=== PATIENT | female | born 1945 | race Caucasian/White ===

== ENCOUNTER 2020-01-08 09:20 | Outpatient (CLI) | payer MEDICARE, SELFPAY ==
--- NOTE | ~2020-01-08 | MM_ITS ---
EXAMINATION: MM screening [facility] BI w shoaib HISTORY: Screening mammogram TECHNIQUE: Craniocaudal and mediolateral oblique 3-D tomosynthesis images were obtained and synthetic 2-D images were generated. CAD analysis was submitted and interpreted. COMPARISON: 12/18/2018, 12/15/2017, 11/28/2016 BREAST PARENCHYMAL COMPOSITION: There are scattered areas of fibroglandular density. FINDINGS: There is no evidence of suspicious mass, calcification, or architectural distortion to sugg est malignancy in either breast. There has been no suspicious interval change. IMPRESSION: 1. No mammographic evidence of malignancy. 2. Recommend routine screening mammography in one year. BI-RADS Category 1: Negative Reviewed, dictated and finalized at location A.
== END 2020-01-08 09:21 | disposition home or self-care (01) ==
LOC: ANHIMG 09:27
PROVIDERS: PCP Family Medicine; Visit Provider Obstetrics & Gynecology
DX: Z12.31 Encounter for screening mammogram for malignant neoplasm of breast (principal)
CPT/HCPCS: 77063; 77067

== ENCOUNTER 2021-02-02 15:35 | Outpatient (CLI) | payer MEDICARE, SELFPAY ==
--- NOTE | ~2021-02-02 | MM_ITS ---
EXAMINATION: MM screening [facility] BI w shoaib HISTORY: Screening mammogram TECHNIQUE: Craniocaudal and mediolateral oblique 3-D tomosynthesis images were obtained and synthetic 2-D images were generated. CAD analysis was submitted and interpreted. COMPARISON: 01/08/2020, 12/18/2018, 12/15/2017 BREAST PARENCHYMAL COMPOSITION: There are scattered areas of fibroglandular density. FINDINGS: There is no evidence of suspicious mass, calcification, or architectural distortion to sugg est malignancy in either breast. There has been no suspicious interval change. IMPRESSION: 1. No mammographic evidence of malignancy. 2. Recommend routine screening mammography in one year. BI-RADS Category 1: Negative Reviewed, dictated and finalized at location A.
== END 2021-02-02 15:36 | disposition home or self-care (01) ==
LOC: ANHIMG 15:41
PROVIDERS: PCP Family Medicine; Visit Provider Obstetrics & Gynecology
DX: Z12.31 Encounter for screening mammogram for malignant neoplasm of breast (principal)
CPT/HCPCS: 77063; 77067

== ENCOUNTER 2021-04-30 13:22 | Outpatient (CLI) | payer MEDICARE, SELFPAY ==
--- NOTE | ~2021-04-30 | DEXA_ITS ---
Bone Density Report Name: Yulisa Braga Age: 75 Sex: Female Ethnicity: White Date of : 1945 Indication: postmenopausal; height loss; Referring Provider: DAKSHA SPARKS Study: Bone densitometry was performed. Exam Date: April 30, 2021 Accession number: [id number] Bone Density: Region BMD T-score Z-score Classification AP Spine (L1-L4) 0.841 -1.9 0.7 Osteopenia Femoral Neck (Left) 0.581 -2.4 -0.2 Osteopenia Total Hip (Left) 0.741 -1.7 0.3 Osteopenia Total Hip Bilateral Avg 0.712 -1.9 0.1 Osteopenia Femoral Neck (Right) 0.567 -2.5 -0.4 Osteoporosis Total Hip (Right) 0.682 -2.1 -0.2 Osteopenia World Health Organization criteria for BMD impression classify patients as: Normal (T-score at or above -1.0), Osteopenia (T-score between -1.0 and -2.5), or Osteoporosis (T-score at or below -2.5). 10-year Fracture Risk: FRAX not reported because: Some T-score for Spine Total or Hip Total or Femoral Neck at or below -2.5 Treated for osteoporosis Clinical Information Provided by Patient: Is being treated for osteoporosis Has used the following medications: Boniva (i.e. ibandronate) Patient maximum height was 67 Menopause Age: 48 No regular weight bearing exercise Onset of menses at age 11 Number of children 1 Impression: The patient has osteoporosis, based on the Right Femoral Neck T-score. Discussion: It is important to ask patients whether they are taking their medications and to encourage continued and appropriate compliance with their osteoporosis therapies to reduce fracture risk. It is also important to review their risk factors and encourage appropriate calcium and vitamin D intakes, exercise, fall prevention and other lifestyle measures. Follow-Up: Consider a repeat BMD and Vertebral Fracture Assessment (VFA) exam in 2 years or sooner if medically necessary, to reassess this patient's status. Reported by: HERI on 04/30/2021 1:56:00 PM. Reviewed, dictated and finalized at location ANito [facility]
== END 2021-04-30 13:23 | disposition home or self-care (01) ==
LOC: ANHIMG 13:24
PROVIDERS: PCP Family Medicine; Visit Provider Obstetrics & Gynecology
DX: M81.0 Age-related osteoporosis without current pathological fracture (principal); M85.88 Other specified disorders of bone density and structure, other site; M85.851 Other specified disorders of bone density and structure, right thigh; M85.852 Other specified disorders of bone density and structure, left thigh
CPT/HCPCS: 77080

== ENCOUNTER 2022-02-17 09:31 | Outpatient (CLI) | payer MEDICARE, SELFPAY ==
--- NOTE | ~2022-02-17 | MM_ITS ---
EXAMINATION: MM screening [facility] BI w shoaib HISTORY: Screening mammogram TECHNIQUE: Craniocaudal and mediolateral oblique 3-D tomosynthesis images were obtained and synthetic 2-D images were generated. CAD analysis was submitted and interpreted. COMPARISON: 02/02/2021, 01/08/2020, 12/18/2018 bilateral screening mammogram examinations BREAST PARENCHYMAL COMPOSITION: The breasts are heterogeneously dense, which may obscure small masses . FINDINGS: There is no evidence of suspicious mass, calcification, or architectural distortion to sugg est malignancy in either breast. There has been no suspicious interval change. IMPRESSION: 1. No mammographic evidence of malignancy. 2. Recommend routine screening mammography in one year. BI-RADS Category 1: Negative Reviewed, dictated and finalized at location A.
== END 2022-02-17 09:32 | disposition home or self-care (01) ==
PROVIDERS: PCP Family Medicine; Visit Provider Obstetrics & Gynecology
DX: Z12.31 Encounter for screening mammogram for malignant neoplasm of breast (principal)
CPT/HCPCS: 77063; 77067

== ENCOUNTER 2022-03-06 09:26 | Emergency (ER) | payer MEDICARE, SELFPAY ==
--- NOTE | ~2022-03-06 | CT_ITS ---
EXAMINATION: CT pelvis wo con DATE: 03/06/2022 11:35 INDICATION: Tender to palpation. Bony deformity. TECHNIQUE: Computed tomography (CT) of the pelvis was performed without intravenous contrast. The dos e-length product was 120.93 mGy-cm. Automated exposure control and iterative reconstruction technique were employed. 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 No acute fracture or traumatic malalig nment. Pelvic rings are intact. Moderate colonic fecal loading. Nonobstructive bowel pattern. No free air or free fluid. IMPRESSION: 1. No acute abnormality of the pelvis. Reviewed, dictated and finalized at location A.
[2022-03-06 09:31] VITALS: BP 124/66; PULSE 93; RESP 16; TEMP 36.4; O2SAT 96
--- NOTE | 2022-03-06 09:54 | ED.GENADULT ---
HPI - General Adult General Chief complaint: Weakness Stated complaint: Shingles Pain x1 Month Time Seen by Provider: 03/06/22 09:41 History of Present Illness HPI narrative: Patient is a 76-year-old female with a history of recent shingles flareup here for evaluation of difficulty sleeping over the past month. Patient states that at nighttime she will toss and turn and has trouble falling and staying asleep, leading her to only get about an hour of sleep per night. She states this is made her to feel tired during the day. Patient is quite physically active, and she has still been able to complete her daily activities without feeling short of breath or developing chest pain. Patient attributes her difficulty sleeping due to recent shingles infection that was treated with Valtrex and gabapentin. Additionally attributes this to lumps and bumps in her back. These lesions developed without trauma but have been painful, somewhat alleviated with aleve. Denies incontinence or retention of bowel or bladder, saddle anesthesia, paresthesias down her legs. Patient denies weakness, states she just feels tired. Denies urinary symptoms, fevers, abdominal pain, nausea, vomiting, shortness of breath, cough, upper respiratory symptoms. Related Data Allergies Allergy/AdvReac Type Severity Reaction Status Date / Time No Known Allergies Allergy Verified 03/06/22 09:42 Review of Systems Review of Systems: Gen: Reports feeling tired and difficulty sleeping. Denies fevers or chills Eyes: Denies eye pain or visual change ENT: Denies congestion Respiratory: Denies shortness of breath or cough CV: Denies chest pain or palpitations GI: Denies abdominal pain nausea, emesis or diarrhea denies burning, urgency, frequency or hematuria Musculoskeletal: Reports pain over her sacrum. Denies muscle pain Neuro: Denies numbness, tingling, weakness or focal weakness Skin: Denies rash Except as documented, all other systems reviewed and negative [facility] Past Medical History Medical History Age-related osteoporosis without current pathological fracture Surgical History Surgical History Bilateral retinal detachment History of cholecystectomy Family History Family History Mother Carcinoma of colon Family history of coronary artery disease Sibling Carcinoma of colon Father Carcinoma of colon Social History Social History Smoking status: Never smoker Second hand tobacco smoke exposure: No Alcohol intake: current Alcohol use details: rare Substance use: never Substance use type: does not use Gender identity (if verbalized by the patient): Female Exam Narrative: APPEARANCE: Well appearing, no pain in distress, well-nourished. Head normocephalic and atraumatic. EYES: PERRLA/EOMI, conjunctivae clear NOSE: No nasal drainage EARS: External ear normal in appearance THROAT: Oropharynx is clear. Mucous membranes are moist. NECK: Supple. No adenopathy, no masses. RESPIRATORY: Airway patent, respirations nonlabored. Clear to auscultation bilaterally, no rales, rhonchi, wheezing. CARDIOVASCULAR: Regular rate and rhythm without murmurs, rubs, or gallops. ABDOMINAL: Normoactive bowel sounds. Soft, nontender, nondistended. No rebound tenderness or guarding. MUSCULOSKELETAL: Patient is tender to palpation along the left superior iliac crest and left sacral area, bony deformity palpated along sacrum. Extremities are warm and well-perfused. Moves all extremities well. No edema. NEURO: Normal speech. No focal neurologic deficits. SKIN: Patient has a macular rash on the left lower abdomen extending over the left flank PSYCHIATRIC: Normal affect/mood. Course Vital Signs Vital signs: Vital Signs Temperature 97.5 F L
[2022-03-06 10:13] LABS: Basophils Absolute Auto 0.1 K/mm3 (0.0-0.1); Basophils Percent Auto 0.9 % (0.2-1.2); Eosinophils Absolute Auto 0.1 K/mm3 (0-0.3); Eosinophils Percent Auto 2.2 % (0-4.4); Hematocrit 38.5 % (37.0-47.0); Hemoglobin 12.9 g/dL (12.0-15.0); Immature Granulocyte Absolute 0.02 K/mm3 (0.00-0.031); Immature Granulocyte Percent A 0.3 % (0-0.5); Lymphocytes Absolute Auto 2.14 K/mm3 (0.9-3.2); Lymphocytes Percent Auto 33.4 % (18.3-44.2); Mean Corpuscular HGB Conc 33.5 g/dl (32-36); Mean Corpuscular Hemoglobin 33.2 pg (26-34); Mean Corpuscular Volume 99.2 fl (80-100); Monocytes Absolute Auto 0.5 K/mm3 (0.1-0.6); Monocytes Percent Auto 8.3 % (2.6-8.5); Neutrophils Absolute Auto 3.5 K/mm3 (1.3-6.7); Neutrophils Percent Auto 54.9 % (45.5-73.1); Platelet Count Result 254 k/mm3 (150-375); Red Blood Count 3.88 M/mm3 (4.2-5.4); Red Cell Distribution Width 13.7 % (11.5-14.5); White Blood Count 6.4 K/mm3 (4.5-10.0)
[2022-03-06 10:23] LABS: Alanine Aminotransferase 22 U/L (6-35); Alkaline Phosphatase 68 U/L (38-126); Anion Gap 4 mmol/L (8-16); Aspartate Amino Transferase 24 U/L (14-36); Bilirubin,Total 0.4 mg/dL (0.2-1.3); Blood Urea Nitrogen 22 mg/dL (7-17); Calcium 8.7 mg/dL (8.4-10.2); Carbon Dioxide 27 mmol/L (22-30); Chloride 104 mmol/L (98-107); Estimated CRCL calculation 36 ml/min; Estimated Glomerular Filt Rate > 60; Glucose 101 mg/dL (65-110); Potassium 4.1 mmol/L (3.4-5.0); Sodium 135 mmol/L (137-145)
[2022-03-06 10:25] LABS: Appearance Urine Clear (Clear); Bilirubin Urine 1+ (Negative); Blood Urine Negative (Negative); Color Urine Yellow (Yellow); Glucose Urine UA Negative (Negative); Ketones Urine 1+ mg/dL (Negative); Leukocyte Esterase Ur Negative LEU/UL (Negative); Nitrate Urine Negative (Negative); Protein Urine Trace mg/dL (Negative); Urobilinogen Urine 0.2 mg/dL (<2.0)
[2022-03-06 10:41] LABS: Add Urine Microscopic? YES; Mucus Urine Rare /lpf; RBC Urine 0-2 /hpf (0-2); Squamous Epithelial Cell Urine Rare /hpf (Few); WBC Urine 0-3 /hpf
[2022-03-06 12:20] VITALS: BP 127/78; PULSE 88; RESP 17; O2SAT 99
== END 2022-03-06 12:22 | disposition home or self-care (01) ==
PROVIDERS: Physician Assistant; Emergency Provider General Practice; PCP Family Medicine
DX: M54.50 Low back pain, unspecified (principal); M81.0 Age-related osteoporosis without current pathological fracture
CPT/HCPCS: 36415; 72192; 80053; 81001; 85025; 99284

== ENCOUNTER 2023-01-30 00:40 | Day surgery (SDC) | payer MEDICARE, SELFPAY ==
--- NOTE | 2023-01-18 11:19 | PC.NURSE ---
called pt to complete her pat call for colonoscopy scheduled for january 30. pt could not remember if she had the instructions for her prep, states she did have a one sheet paper describing the prep. went over her instructions and her medical history. pt voiced understanding. mailed complete copy of instructions, offered email but pt states she only checks it once a week. pt a/o x 3 but vague historian.
[2023-01-30 08:48] VITALS: BP 83/53; PULSE 92; RESP 18; TEMP 36.1; O2SAT 98; BMI 14.6
[2023-01-30] MEDS: LACTATED RINGERS 1,000 ML 150 ML IV CONT (08:59)
--- NOTE | 2023-01-30 09:04 | PM.HPGS ---
History of Present Illness History of Present Illness Consent: Risks, benefits, and alternatives have been discussed and questions answered. Patient agrees to proceed with procedure. Chief complaint: family hx colon ca Narrative: Yulisa Braga is a 77 year old female Patient presents for screening colonoscopy. Patient family history is significant grandfather, father, brother, and sister have had colon cancer. Other siblings have had polyps. Patient reports her own weight appetite bowel movements are normal. Previous colonoscopy 2016 was unremarkable. Patient presents today for neoplasia screening. Review of Systems Review of Systems: Review of systems noncontributory. [facility] Past Medical History Medical History Age-related osteoporosis without current pathological fracture Surgical History Surgical History Bilateral retinal detachment History of cholecystectomy Family History Family History Mother Carcinoma of colon Family history of coronary artery disease Sibling Carcinoma of colon Father Carcinoma of colon Social History Social History Smoking status: Former smoker Tobacco type: cigarettes Second hand tobacco smoke exposure: No Alcohol intake: current Alcohol use details: rare Substance use: never Substance use type: does not use Living arrangements: alone Occupation/Education: retired Gender identity (if verbalized by the patient): Female Meds Home Medications and Allergies Home Medications Medication Instructions Recorded Confirmed Type cetirizine 5 mg-pseudoephedrine ER 1 tablet PO Q12H #72 tabs 09/29/21 01/18/23 Rx 120 mg tablet,extended release,12hr (Zyrtec-D) ibandronate 150 mg tablet 150 mg PO 01/18/23 History Allergies Allergy/AdvReac Type Severity Reaction Status Date / Time No Known Allergies Allergy Verified 01/30/23 08:47 Vital Signs Vital Signs - 24 hr 01/30/23 08:48 Temperature 97.0 F L Pulse Rate 92 Respiratory Rate 18 Blood Pressure 83/53 L Pulse Oximetry 98 Oxygen Delivery Room Air Exam Narrative: Physical exam reveals patient to be alert. Vital signs stable. HEENT exam is unremarkable. Patient is anicteric. Lungs are clear to auscultation and percussion. Heart is without murmur or extra sounds. Abdomen bowel sounds are present soft nontender with no organomegaly. Digital external rectal exam is normal. Assessment and Plan Assessment and plan (1) Family history of colon cancer: Code(s): Z80.0 - Family history of malignant neoplasm of digestive organs Status: Acute Assessment and Plan: Patient has a very strong family history of colon cancer. Neoplasia screening advised at this time. Further recommendations will be given after endoscopy.
--- NOTE | 2023-01-30 09:16 | P.PNAN_ITS ---
Anes - Initial Pre Proc Eval Procedure: Operation Date: 01/30/23 10:15 Proposed Procedures p Screening Colonoscopy - Erickson Ocampo MD Date/Time: 01/30/23 09:16 Surgeon: Erickson Ocampo MD Pre Op Diagnosis: family hx colon ca Patient Data Age: 77 Gender: F Height: 1.7 m Weight: 42.3 kg Last Vital Signs Temp 97.0 F L 01/30/23 08:48 Pulse 92 01/30/23 08:48 Resp 18 01/30/23 08:48 BP 83/53 L 01/30/23 08:48 Pulse Ox 98 01/30/23 08:48 O2 Del Method Room Air 01/30/23 08:48 Allergies Allergy/AdvReac Type Severity Reaction Status Date / Time No Known Allergies Allergy Verified 01/30/23 08:47 Home Medications Medication Instructions Recorded Confirmed Type cetirizine 5 mg-pseudoephedrine ER 1 tablet PO Q12H #72 tabs 09/29/21 01/18/23 Rx 120 mg tablet,extended release,12hr (Zyrtec-D) ibandronate 150 mg tablet 150 mg PO 01/18/23 History Patient hx anesthesia problems: none Family hx anesthesia problems: none Results Review: All pre-operative results and documents have been reviewed as part of the pre- operative evaluation. [facility] Past Medical History Medical History Age-related osteoporosis without current pathological fracture Surgical History Surgical History Bilateral retinal detachment History of cholecystectomy Family History Family History Mother Carcinoma of colon Family history of coronary artery disease Sibling Carcinoma of colon Father Carcinoma of colon Social History Social History Smoking status: Former smoker Tobacco type: cigarettes Second hand tobacco smoke exposure: No Alcohol intake: current Alcohol use details: rare Substance use: never Substance use type: does not use Living arrangements: alone Occupation/Education: retired Gender identity (if verbalized by the patient): Female Anes - Eval Final PreProcedure Day of Procedure 05/08/23 09:16 Patient weight: normal Heart: regular rate and rhythm Lungs: clear to auscultation Airway: Mallampati scale class II Neurological: alert and oriented Last oral intake: >/= 8 hours ASA classification: II Emergent: no Anesthetic plan: proceed Anesthesia type and monitoring: general GIVS and standard monitoring Results Review: All pre-operative results and documents have been reviewed as part of the pre- operative evaluation. Informed Consent: The patient's anesthetic plan and its attendant risks and benefits were discussed with the patient/family/POA. Questions were solicited and answers provided to the satisfaction of the patient/family/POA.
[2023-01-30 09:58] VITALS: BP 83/32; PULSE 71; RESP 30; O2SAT 100
[2023-01-30 10:08] VITALS: BP 84/43; PULSE 71; RESP 25; O2SAT 100
[2023-01-30 10:18] VITALS: BP 102/40; PULSE 69; RESP 16; O2SAT 98
== END 2023-01-30 10:22 | disposition home or self-care (01) ==
PROVIDERS: PCP Family Medicine; Visit Provider Internal Medicine Gastroenterology
PROC: 0DJD8ZZ Inspection of Lower Intestinal Tract, Via Natural or Artificial Opening Endoscopic (ICD-10-PCS; CPT 45378; principal; 2023-01-30 10:15)
DX: Z12.11 Encounter for screening for malignant neoplasm of colon (principal); K63.5 Polyp of colon; K64.8 Other hemorrhoids; Z80.0 Family history of malignant neoplasm of digestive organs; M81.0 Age-related osteoporosis without current pathological fracture; Z87.891 Personal history of nicotine dependence
CPT/HCPCS: 45380; 88305; J2704; J7120

== ENCOUNTER 2023-05-03 10:18 | Outpatient (CLI) | payer MEDICARE, SELFPAY ==
--- NOTE | ~2023-05-03 | DEXA_ITS ---
Bone Density Report Name: CLAUDIO ZAVALETA Age: 77 Sex: Female Ethnicity: White Date of : 1945 Indication: osteopenia; height loss;postmenopausal Referring Provider: DAKSHA SPARKS Study: Bone densitometry was performed. Exam Date: May 03, 2023 Accession number: [id number] Bone Density: Region BMD T-score Z-score Classification AP Spine(L1-L4) 0.866 -1.6 1.0 Osteopenia Femoral Neck (Left) 0.549 -2.7 -0.4 Osteoporosis Total Hip (Left) 0.671 -2.2 -0.2 Osteopenia Femoral Neck (Right) 0.608 -2.2 0.1 Osteopenia Total Hip (Right) 0.710 -1.9 0.1 Osteopenia Total Hip Mean 0.691 -2.1 -0.1 Osteopenia World Health Organization criteria for BMD impression classify patients as: Normal (T-score at or above -1.0), Osteopenia (T-score between -1.0 and -2.5), or Osteoporosis (T-score at or below -2.5). 10-year Fracture Risk: FRAX not reported because: Some T-score for Spine Total or Hip Total or Femoral Neck at or below -2.5 Previous Exams: Region Exam Age BMD T-score BMD Change BMD Change Date g/cm2 vs Baseline vs Previous Total Hip(Left) 05/03/2023 77 0.671 -2.2 -0.070 (-9.4%) -0.070 (-9.4%) 04/30/2021 75 0.741 -1.7 Total Hip(Right) 05/03/2023 77 0.710 -1.9 0.028 (4.2%)# 0.028 (4.2%)# 04/30/2021 75 0.682 -2.1 *Denotes significance at 95% confidence level, LSC for Total Hip = 0.027 g/cm2 # Denotes dissimilar scan types or analysis methods Clinical Information Provided by Patient: Has used the following medications: Vitamin D, Calcium Patient maximum height was 67 Menopause Age: 48 Drinks caffeinated beverages Onset of menses at age 10 Number of children 1 Impression: The patient has osteoporosis, based on the Left Femoral Neck T-score. No significant bone loss was observed. Discussion: INCREASED RISK OF FRACTURE. BONE DENSITY IS UNDESIRABLY LOW AT ONE OR MORE SKELETAL SITES, CONSISTENT WITH POSTMENOPAUSAL OSTEOPOROSIS. This patient's lowest T-score meets the World Health Organization's (WHO) criteria for osteoporosis at one or more sites (T-score -2.5 or below). In untreated patients, the risk of osteoporotic fracture increases approximately two-fold for each 1.0 SD decrease in T-score. Low bone density is not the only risk factor for fracture; also consider factors such as patient's age, frailty or poor health, risk of falling, risk of injury, previous osteoporotic fracture, family history of osteoporosis, cigarette smoking, low body weight, etc. Not every
== END 2023-05-03 10:19 | disposition home or self-care (01) ==
LOC: ANHIMG 10:21
PROVIDERS: PCP Family Medicine; Visit Provider Obstetrics & Gynecology
DX: M81.0 Age-related osteoporosis without current pathological fracture (principal); M85.88 Other specified disorders of bone density and structure, other site; M85.852 Other specified disorders of bone density and structure, left thigh; M85.851 Other specified disorders of bone density and structure, right thigh
CPT/HCPCS: 77080

== ENCOUNTER 2024-10-10 09:39 | Inpatient (IN) | payer MEDICARE, SELFPAY ==
[2024-10-10] VITALS (12 sets, daily range): BP systolic 93–135; BP diastolic 39–87; PULSE 75–89; RESP 12–18; TEMP 36.3–36.9; O2SAT 92–100
--- NOTE | ~2024-10-10 | CT_ITS ---
CT lumbar spine wo con Ordering provider: Jinny Park APRN History: 78 years Female with . back pain s/p fall . Comparison: None. Technique: CT lumbar spine without contrast. Automated exposure control and iterative reconstruction technique were employed. The dose-length product was 170.70 mGy-cm. FINDINGS: VERTEBRAE: Normal height and alignment. No subluxation or visible acute fracture. DISC SPACES: Well maintained. Facet joint disease in the lower lumbar area at multiple levels. T12-L1: No stenosis. L1-L2: No stenosis. L2-L3: No stenosis. L3-L4: No stenosis. Bilateral facet joint disease. Diffuse disc bulge with slight narrowing of the ri ght foramen. L4-L5: No stenosis. Bilateral facet joint disease. Diffuse disc bulge with slight narrowing of the r ight foramen. L5-S1: No stenosis. Bilateral facet joint disease. Diffuse disc bulge with bilateral narrowing of th e foramina. PARASPINOUS SOFT TISSUES: Mild atheromatous disease of the abdominal aorta. Left sacroiliitis. IMPRESSION: No acute osseous abnormality. Multilevel disc bulges with variable degrees of intervertebral foraminal narrowing. Reviewed, dictated and finalized at location A. KAYAKING GUIDE IMPRESSION: No acute osseous abnormality. Multilevel disc bulges with variable degrees of intervertebral foraminal narrow ing.
--- NOTE | ~2024-10-10 | XR_ITS ---
XR hip BI 2V w AP pelvis Ordering provider: Jinny Park APRN History: . + pelvis/hip pain s/p fall on ice YESTERDAY . Comparison: None. FINDINGS: BONES: Possibility of impacted fracture in the right surgical neck is not excluded. CT evaluation is advised. HIP JOINT SPACES: Severe right hip osteoarthritic changes. SACROILIAC JOINT SPACES/LUMBAR SPINE: The sacroiliac joint spaces are normal. Mild degenerative mckenzie es of the visualized lower lumbar spine. PUBIC SYMPHYSIS: Normal. SOFT TISSUES: Normal. IMPRESSION: Possibility of fracture in the right surgical neck cannot be excluded. CT evaluation is advised. Severe right hip osteoarthritic changes. Reviewed, dictated and finalized at location A. MENT CONTROL ASSISTANT IMPRESSION: Possibility of fracture in the right surgical neck cannot be excluded. CT evalu ation is advised. Severe right hip osteoarthritic changes.
--- NOTE | ~2024-10-10 | CT_ITS ---
EXAMINATION: CT hip RT wo con DATE: 10/10/2024 11:17 INDICATION: Suggestion of right femoral neck fracture on prior radiographs. TECHNIQUE: High resolution computed tomography (CT) of the right hip was performed without intravenou s contrast. Additional sagittal and coronal reconstructions were performed. Automated exposure contro l and iterative reconstruction technique were employed. The dose-length product was 108.96 mGy-cm. COMPARISON: Radiographs dated 10/10/2024 FINDINGS: There is a subcapital fracture of the proximal right femur with mild anterior and lateral impaction r esulting in mild valgus angulation. There is mild comminution along the anteromedial side of the frac ture. No evident fracture of the visualized right hemipelvis. Moderate to severe right hip osteoarthr itis with prominent subarticular cystlike change at the anterosuperior right acetabulum. Small right hip joint effusion. IMPRESSION: 1. Impacted and mildly comminuted subcapital fracture of the proximal right femur. 2. Moderate to severe right hip osteoarthritis. Reviewed, dictated and finalized at location B. FICIAL INSEMINATION TECHNICIAN IMPRESSION: 1. Impacted and mildly comminuted subcapital fracture of the proximal right fem ur. 2. Moderate to severe right hip osteoarthritis.
--- NOTE | ~2024-10-10 | XR_ITS ---
XR surgery orthopedic Indication: Right hip pinning with lag screws TECHNIQUE: Fluoroscopy used during Right hip pinning with lag screws performed by [Jose mcallister MD] on 10/10/2024. 1 minute 33 seconds of fluoroscopy with 2 fluoroscopic images captured. FINDINGS: Correlate with procedure note. IMPRESSION: Fluoroscopy used during Right hip pinning with 3 lag screws. Reviewed, dictated and finalized at location A. ICER
--- NOTE | ~2024-10-10 | XR_ITS ---
EXAMINATION: XR knee RT min 4V DATE: 10/10/2024 10:42 INDICATION: Right knee pain post fall TECHNIQUE: Anteroposterior, 2 oblique and crosstable lateral views of the right knee were obtained COMPARISON: None. FINDINGS: Alignment is normal. No fracture. Joint spaces appear normal on nonweightbearing imaging. No joint e ffusion/layering lipohemarthrosis. Soft tissues are unremarkable. IMPRESSION: 1. Negative right knee radiographs. Reviewed, dictated and finalized at location B. D AND PLASMA LABORATORY ASSISTANT
--- NOTE | 2024-10-10 10:28 | ED_ITS ---
HPI - Fall General Chief Complaint: Fall <Jinny Park APRN - Last Filed: 10/10/24 18:21> Stated Complaint: r groin pain <Jinny Park APRN - Last Filed: 10/10/24 18:21> History of Present Illness HPI Narrative: Patient is an 78-year-old female who presents to the ER after slipping on ice and falling on her back. She reports she was getting out of her car, stepped out with one foot, then slipped and fell backwards. Patient denies hitting her head or loss of consciousness. She reports the incision above yesterday but she decided to come in today because she does not have any pain medicine at home. Patient endorses significant groin pain and lower back pain. She reports she is unable to move right leg appropriately. Patient also reports she does not have pain medicine and states ?I am a and I have all this money so I figured I might as well come in to get checked out. She denies any medical history this size bone density loss and ?some sinus stuff. Patient reports she is out of her bone pill and follow her pain medication at home is . She denies chest pain, shortness of breath, headache, upper back pain, lower extremity pain. <Jinny Park APRN - Last Filed: 10/10/24 18:21> Related Data Allergies/Adverse Reactions: Allergies Allergy/AdvReac Type Severity Reaction Status Date / Time No Known Allergies Allergy Verified 10/10/24 09:43 <Jinny Park APRN - Last Filed: 10/10/24 18:21> Review of Systems 2 Review of Systems: All systems reviewed & are unremarkable except as noted in HPI and below <Jinny Park APRN - Last Filed: 10/10/24 18:21> [facility] Past Medical History Medical History: Medical History Anxiety Shingles History of retinal detachment Age-related osteoporosis without current pathological fracture Family history of colon cancer History of bladder cancer HLD (hyperlipidemia) <Jinny Park APRN - Last Filed: 10/10/24 18:21> Surgical History Surgical History: Surgical History History of appendectomy History of cholecystectomy Bilateral retinal detachment <Jinny Park APRN - Last Filed: 10/10/24 18:21> Family History Family History: Family History Mother Carcinoma of colon Family history of coronary artery disease Sibling Carcinoma of colon Father Carcinoma of colon <Jinny Park APRN - Last Filed: 10/10/24 18:21> Social History Social History: Social History Smoking status: Former smoker Second hand tobacco smoke exposure: No Alcohol intake: current Alcohol use details: rare Substance use: never Substance use type: does not use Do You Feel Safe in your Home?: Yes Lack of Transportation: No Lack of Food: Never True Current Housing: I Have Housing Concerned About Future Housing: No Difficulty Paying Gas/Electric Bills: No Difficulty Paying for Meds: No Currently Unemployed: No Education: Master's Degree or Higher Difficulty w/ Childcare or Family Care: No Living arrangements: alone Occupation/Education: retired Gender identity (if verbalized by the patient): Female Spiritual care concerns: No <Jinny Park APRN - Last Filed: 10/10/24 18:21> Exam 2 Narrative: GENERAL: Well appearing, poorly-nourished, non-toxic, in no acute distress. HEAD: Normocephalic, atraumatic. NECK: Supple. No adenopathy, no masses. RESPIRATORY: Airway patent, respirations nonlabored. Clear to auscultation bilaterally, no rales, rhonchi, wheezing. CARDIOVASCULAR: Regular rate and rhythm without murmurs, rubs, or gallops. Peripheral pulses 2+ and equal bilaterally. ABDOMINAL: Soft, nontender, nondistended, no hepatosplenomegaly. Normoactive BS. MUSCULOSKELETAL: Moves all extremities besides RLE. Strength/ROM intact without gross deformities. +pain with manipulation of RLE (abduction, adduction, and leg raise). Pt unable to lift RLE independently. SKIN: Warm, dry, normal color. No rashes. NEURO: A&O X3. Speech clear. Cranial nerves II-XII grossly intact. Steady gait. No ataxic movements. PSYCHIATRIC: Appropriate mood and affect. Normal interaction. <Jinny Park APRN - Last Filed: 10/10/24 18:21> Course DIRECTOR OF INSTITUTIONAL SALES/PA Physician Supervision This visit was performed by both a physician and an APC. I performed all aspects of the MDM as documented. <Barron Matos MD - Last Filed: 10/10/24 18:51> Vital Signs Vital signs: Vital Signs Temperature 98.3 F 10/10/24 09:37 Pulse Rate 89 10/10/24 09:37 Respiratory Rate 16 10/10/24 09:37 Blood Pressure 135/61 10/10/24 09:37 Pulse Oximetry 96 10/10/24 09:37 Oxygen Delivery Room Air 10/10/24 09:37 Temperature 97.8 F 10/10/24 18:15 Pulse Rate 80 10/10/24 18:15 Respiratory Rate 16 10/10/24 18:15 Blood Pressure 106/48 L 10/10/24 18:15 Pulse Oximetry 100 10/10/24 18:15 Oxygen Delivery Nasal Cannula 10/10/24 17:20 Oxygen Flow Rate 3 10/10/24 17:20 <Jinny Park APRN - Last Filed: 10/10/24 18:21> Vital Signs Temperature 98.3 F 10/10/24 09:37 Pulse Rate 89 10/10/24 09:37 Respiratory Rate 16 10/10/24 09:37 Blood Pressure 135/61 10/10/24 09:37 Pulse Oximetry 96 10/10/24 09:37 Oxygen Delivery Room Air 10/10/24 09:37 Temperature 97.8 F 10/10/24 18:15 Pulse Rate 80 10/10/24 18:15 Respiratory Rate 16 10/10/24 18:15 Blood Pressure 106/48 L 10/10/24 18:15 Pulse Oximetry 100 10/10/24 18:15 Oxygen Delivery Nasal Cannula 10/10/24 17:20 Oxygen Flow Rate 3 10/10/24 17:20 <Barron Matos MD - Last Filed: 10/10/24 18:51> MDM - Fall MDM Narrative Medical decision making narrative: Patient is an 78-year-old female who presents to the ER after slipping on ice and falling on her back. She reports she was getting out of her car, stepped out with one foot, then slipped and fell backwards. Patient denies hitting her head or loss of consciousness. She reports the incision above yesterday but she decided to come in today because she does not have any pain medicine at home. Patient endorses significant groin pain and lower back pain. She reports she is unable to move right leg appropriately. Patient also reports she does not have pain medicine and states ?I am a and I have all this money so I figured I might as well come in to get checked out. She denies any medical history this size bone density loss and ?some sinus stuff. Patient reports she is out of her bone pill and follow her pain medication at home is . She denies chest pain, shortness of breath, headache, upper back pain, lower extremity pain. Labs Ordered: None necessary Imaging Ordered: Right knee x-ray, bilateral hip and AP pelvis x-ray, CT lumbar spine Medications Ordered: Tylenol p.o., ibuprofen p.o. Results: Pt's CT scan indicates 1.impacted and mildly comminuted subcapital fracture of the proximal right femur. 2. Moderate to severe right hip osteoarthritis. Diagnosis: R femur fracture Consults: orthopedics Patient Education/Shared MDM: 1140-spoke with orthopedics who reports they will take patient to the OR for repair. He also advised patient be admitted to the hospital. 1145-went in and spoke with patient to share results. When patient was asked when she last ate something her answer is unclear. She reports I may have had some coffee this morning. Upon further discussion patient states I may have a cookie or something. Patient then retracted her statement and said I think all I had was a cookie. Call placed to hospitalist for admission. CBC and CMP drawn prior to surgery. 1220- Spoke with harpreet Olivares. She is in agreement to admit patient. <Jinny Park APRN - Last Filed: 10/10/24 18:21> Differential Diagnosis Differential diagnosis: Likely other (Hip fracture, pelvis fracture, pain status post fall, lumbar fracture) <Jinny Park APRN - Last Filed: 10/10/24 18:21> Lab Data Attestation: I reviewed the patient's lab results. <Jinny Park APRN - Last Filed: 10/10/24 18:21> Result diagrams: 10/10/24 11:45 10/10/24 11:45 <iJnny Park APRN - Last Filed: 10/10/24 18:21> Labs: Lab Results 10/10/24 Range/Units 11:45 WBC 11.3 H (4.5-10.0) K/mm3 RBC 3.91 L (4.2-5.4) M/mm3 Hgb 12.8 (12.0-15.0) g/dL Hct 37.9 (37.0-47.0) % MCV 96.9 (80-100) fl MCH 32.7 (26-34) pg MCHC 33.8 (32-36) g/dl RDW 12.7 (11.5-14.5) % Plt Count 175 (150-375) k/mm3 MPV 8.7 (7.4-10.4) fl Immature Gran % (Auto) 0.4 (0-0.5) % Neut % (Auto) 85.9 H (45.5-73.1) % Lymph % (Auto) 8.8 L (18.3-44.2) % [place] % (Auto) 3.9 (2.6-8.5) % Eos % (Auto) 0.5 (0-4.4) % Baso % (Auto) 0.5 (0.2-1.2) % Lymph # (Auto) 0.99 (0.9-3.2) K/mm3 [place] # (Auto) 0.4 (0.1-0.6) K/mm3 Eos # (Auto) 0.1 (0-0.3) K/mm3 Baso # (Auto) 0.1 (0.0-0.1) K/mm3 Abs Immat Gran (auto) 0.04 H (0.00-0.031) K/mm3 Absolute Neuts (auto) 9.7 H (1.3-6.7) K/mm3 Absolute Nucleated RBC 0.000 (0.0-0.012) K/mm3 Nucleated RBC % 0.0 (0.0-0.2) % Sodium 135 L (137-145) mmol/L Potassium 4.2 (3.4-5.0) mmol/L Chloride 99 (98-107) mmol/L Carbon Dioxide 33 H (22-30) mmol/L Anion Gap 3 L (4-12) mmol/L BUN 22 H (7-17) mg/dL Creatinine 0.73 (0.7-1.0) mg/dL Estim Creat Clear Calc 38 ml/min Estimated GFR > 60 (59 - ) Glucose 105 (65-110) mg/dL Calcium 9.1 (8.4-10.2) mg/dL Total Bilirubin 1.1 (0.2-1.3) mg/dL AST 29 (14-36) U/L ALT 30 (6-35) U/L Alkaline Phosphatase 76 (38-126) U/L Total Protein 7.0 (6.3-8.2) g/dL Albumin 3.6 (3.5-5.1) g/dL <Jinny Park, DISABILITY HEARING OFFICER - Last Filed: 10/10/24 18:21> Lab Results 10/10/24 Range/Units 11:45 WBC 11.3 H (4.5-10.0) K/mm3 RBC 3.91 L (4.2-5.4) M/mm3 Hgb 12.8 (12.0-15.0) g/dL Hct 37.9 (37.0-47.0) % MCV 96.9 (80-100) fl MCH 32.7 (26-34) pg MCHC 33.8 (32-36) g/dl RDW 12.7 (11.5-14.5) % Plt Count 175 (150-375) k/mm3 MPV 8.7 (7.4-10.4) fl Immature Gran % (Auto) 0.4 (0-0.5) % Neut % (Auto) 85.9 H (45.5-73.1) % Lymph % (Auto) 8.8 L (18.3-44.2) % [place] % (Auto) 3.9 (2.6-8.5) % Eos % (Auto) 0.5 (0-4.4) % Baso % (Auto) 0.5 (0.2-1.2) % Lymph # (Auto) 0.99 (0.9-3.2) K/mm3 [place] # (Auto) 0.4 (0.1-0.6) K/mm3 Eos # (Auto) 0.1 (0-0.3) K/mm3 Baso # (Auto) 0.1 (0.0-0.1) K/mm3 Abs Immat Gran (auto) 0.04 H (0.00-0.031) K/mm3 Absolute Neuts (auto) 9.7 H (1.3-6.7) K/mm3 Absolute Nucleated RBC 0.000 (0.0-0.012) K/mm3 Nucleated RBC % 0.0 (0.0-0.2) % Sodium 135 L (137-145) mmol/L Potassium 4.2 (3.4-5.0) mmol/L Chloride 99 (98-107) mmol/L Carbon Dioxide 33 H (22-30) mmol/L Anion Gap 3 L (4-12) mmol/L BUN 22 H (7-17) mg/dL Creatinine 0.73 (0.7-1.0) mg/dL Estim Creat Clear Calc 38 ml/min Estimated GFR > 60 (59 - ) Glucose 105 (65-110) mg/dL Calcium 9.1 (8.4-10.2) mg/dL Total Bilirubin 1.1 (0.2-1.3) mg/dL AST 29 (14-36) U/L ALT 30 (6-35) U/L Alkaline Phosphatase 76 (38-126) U/L Total Protein 7.0 (6.3-8.2) g/dL Albumin 3.6 (3.5-5.1) g/dL <Barron aMtos MD - Last Filed: 10/10/24 18:51> Imaging Data Attestation: I personally reviewed and interpreted this imaging study as follows: < Jinny Park APRN - Last Filed: 10/10/24 18:21> Radiologist's impression: Impressions Hip/Pelvis X-Ray 10/10/24 10:47 IMPRESSION: Possibility of fracture in the right surgical neck cannot be excluded. CT evaluation is advised. Severe right hip osteoarthritic changes. Knee X-Ray 10/10/24 10:50 IMPRESSION: 1. Negative right knee radiographs. Lumbar Spine CT 10/10/24 10:51 IMPRESSION: No acute osseous abnormality. Multilevel disc bulges with variable degrees of intervertebral foraminal narrowing. Hip CT 10/10/24 11:19 IMPRESSION: 1. Impacted and mildly comminuted subcapital fracture of the proximal right femur. 2. Moderate to severe right hip osteoarthritis. <Jinny Park APRN - Last Filed: 10/10/24 18:21> Discharge Plan Discharge Clinical Impression: Fracture of femoral neck, right Qualifiers: Encounter type: initial encounter Fracture type: closed Qualified Code(s): S 72.001A - Fracture of unspecified part of neck of right femur, initial encounter for closed fracture <Jinny Park APRN - Last Filed: 10/10/24 18:21> Patient Disposition: Still a Patient <Jinny Park APRN - Last Filed: 10/10/24 18:21> Condition: Stable <Jinny Park APRN - Last Filed: 10/10/24 18:21>
--- NOTE | 2024-10-10 10:31 | PC.NURSE ---
Patient to xray
[2024-10-10] MEDS: ACETAMINOPHEN 325 MG TABLET 650 MG PO (10:49)
[2024-10-10] MEDS: IBUPROFEN 600 MG TABLET PO (10:49)
--- NOTE | 2024-10-10 11:27 | ECG_ITS ---
Test Date: 2024-10-10 11:57:16 Measurements Intervals Rogers Rate: 81 P: 79 NC: 120 QRS: -9 QRSD: 84 T: 75 QT: 366 QTc: 427 Interpretive Statements SINUS RHYTHM POSSIBLE LEFT ATRIAL ENLARGEMENT [-0.1mV P-WAVE IN V1/V2] No previous ECG available for comparison Electronically Signed On 10-10-2024 12:49:26 SKI PATROLLER by Baldev Squires M.D.
[2024-10-10 11:52] LABS: Basophils Absolute Auto 0.1 K/mm3 (0.0-0.1); Basophils Percent Auto 0.5 % (0.2-1.2); Eosinophils Absolute Auto 0.1 K/mm3 (0-0.3); Eosinophils Percent Auto 0.5 % (0-4.4); Hematocrit 37.9 % (37.0-47.0); Hemoglobin 12.8 g/dL (12.0-15.0); Immature Granulocyte Absolute 0.04 K/mm3 (0.00-0.031); Immature Granulocyte Percent A 0.4 % (0-0.5); Lymphocytes Absolute Auto 0.99 K/mm3 (0.9-3.2); Lymphocytes Percent Auto 8.8 % (18.3-44.2); Mean Corpuscular HGB Conc 33.8 g/dl (32-36); Mean Corpuscular Hemoglobin 32.7 pg (26-34); Mean Corpuscular Volume 96.9 fl (80-100); Mean Platelet Volume 8.7 fl (7.4-10.4); Monocytes Absolute Auto 0.4 K/mm3 (0.1-0.6); Monocytes Percent Auto 3.9 % (2.6-8.5); Neutrophils Absolute Auto 9.7 K/mm3 (1.3-6.7); Neutrophils Percent Auto 85.9 % (45.5-73.1); Platelet Count Result 175 k/mm3 (150-375); Red Blood Count 3.91 M/mm3 (4.2-5.4); Red Cell Distribution Width 12.7 % (11.5-14.5); White Blood Count 11.3 K/mm3 (4.5-10.0)
[2024-10-10 12:02] LABS: Alanine Aminotransferase 30 U/L (6-35); Albumin Level 3.6 g/dL (3.5-5.1); Alkaline Phosphatase 76 U/L (38-126); Anion Gap 3 mmol/L (4-12); Aspartate Amino Transferase 29 U/L (14-36); Bilirubin,Total 1.1 mg/dL (0.2-1.3); Blood Urea Nitrogen 22 mg/dL (7-17); Calcium 9.1 mg/dL (8.4-10.2); Carbon Dioxide 33 mmol/L (22-30); Chloride 99 mmol/L (98-107); Estimated CRCL calculation 38 ml/min; Estimated Glomerular Filt Rate > 60; Glucose 105 mg/dL (65-110); Potassium 4.2 mmol/L (3.4-5.0); Sodium 135 mmol/L (137-145)
--- NOTE | 2024-10-10 12:04 | P.CONOP_ITS ---
Assessment and Plan Assessment and plan (1) Fracture of femoral neck, right: Code(s): S72.001A - Fracture of unspecified part of neck of right femur, initial encounter for closed fracture Status: Acute Assessment and Plan: Patient has a femoral neck fracture right. She was ambulatory until she fell. Fracture is impacted mildly displaced. We discussed pinning versus joint replacement. At this point she favors the pinning discussed. History of Present Illness HPI Consult date: 10/10/24 Chief complaint: r groin pain Review of Systems 2 Musculoskeletal: Musculoskeletal: Reports arthralgias, Reports joint swelling and Reports stiffness [facility] Past Medical History Medical History Age-related osteoporosis without current pathological fracture Surgical History Surgical History History of cholecystectomy Bilateral retinal detachment Family History Family History Mother Carcinoma of colon Family history of coronary artery disease Sibling Carcinoma of colon Father Carcinoma of colon Social History Social History Smoking status: Former smoker Tobacco type: cigarettes Second hand tobacco smoke exposure: No Alcohol intake: current Alcohol use details: rare Substance use: never Substance use type: does not use Living arrangements: alone Occupation/Education: retired Gender identity (if verbalized by the patient): Female Meds Home Medications and Allergies Home Medications ?Medication ?Instructions ?Recorded ?Confirmed ?Type cetirizine 5 mg-pseudoephedrine ER 1 tablet PO Q12H #60 tabs 09/26/23 09/26/23 Rx 120 mg tablet,extended release,12hr (Zyrtec-D) ibandronate 150 mg tablet 150 mg PO MONTHLY #3 tabs 09/26/23 09/26/23 Rx Allergies Allergy/AdvReac Type Severity Reaction Status Date / Time No Known Allergies Allergy Verified 10/10/24 09:43 Vital Signs Vital Signs - 24 hr 10/10/24 09:37 Temperature 98.3 F Pulse Rate 89 Respiratory Rate 16 Blood Pressure 135/61 Pulse Oximetry 96 Oxygen Delivery Room Air Exam 2 Narrative: On exam patient has pain with any manipulation of her right hip she can wiggle her toes neurologically she is grossly intact. Neck: Neck: supple Resp: Effort & Inspection: normal respiratory effort Cardio: Rate: regular rate Rhythm: regular rhythm Radiology Reports: Comments: Patient: Yulisa Braga XR hip BI 2V w AP pelvis Ordering provider: Jinny Park APRN History: . + pelvis/hip pain s/p fall on ice YESTERDAY . Comparison: None. FINDINGS: BONES: Possibility of impacted fracture in the right surgical neck is not excluded. CT evaluation is advised. HIP JOINT SPACES: Severe right hip osteoarthritic changes. SACROILIAC JOINT SPACES/LUMBAR SPINE: The sacroiliac joint spaces are normal. Mild degenerative changes of the visualized lower lumbar spine. PUBIC SYMPHYSIS: Normal. SOFT TISSUES: Normal. IMPRESSION: Possibility of fracture in the right surgical neck cannot be excluded. CT evaluation is advised. Severe right hip osteoarthritic changes. Reviewed, dictated and finalized at location A. 2 Hip/Pelvis X-Ray 10/10/24 Knee X-Ray 10/10/24 Results Labs 10/10/24 11:45 10/10/24 11:45 Labs: Abnormal lab results 10/10/24 Range/Units 11:45 WBC 11.3 H (4.5-10.0) K/mm3 RBC 3.91 L (4.2-5.4) M/mm3 Neut % (Auto) 85.9 H (45.5-73.1) % Lymph % (Auto) 8.8 L (18.3-44.2) % Abs Immat Gran (auto) 0.04 H (0.00-0.031) K/mm3 Absolute Neuts (auto) 9.7 H (1.3-6.7) K/mm3 Sodium 135 L (137-145) mmol/L Carbon Dioxide 33 H (22-30) mmol/L Anion Gap 3 L (4-12) mmol/L BUN 22 H (7-17) mg/dL H & H 10/10/24 Range/Units 11:45 Hgb 12.8 (12.0-15.0) g/dL Hct 37.9 (37.0-47.0) % All other labs normal.
--- NOTE | 2024-10-10 12:23 | PM.IMHP ---
H&P: HPI History of Present Illness Date/Time: 10/10/24 12:23 Chief Complaint: Fall Narrative: 78 y/o F presents here with fall with PMH of osteoporosis, HLD, and anxiety. The patient presents here from home via EMS for further evaluation of right groin and right knee pain s/p ground level fall. The patient reports that she was outside and slipped on ice. Patient is unsure what she fell onto (right side vs buttocks) but believes she fell onto her buttocks. She was able to ambulate post fall. She denies head strike or loss of consciousness. Since fall she has felt off and has had an increase in pain. She reports she has had approximately 1 fall that are mechanical in nature (slip, trip, etc.) Currently lives at home alone. She reports that she does not have anyone to check on her or family that assists her. Initial VS at presentation: 98.3? F, HR 89, RR 16, 135/61, and 96% on RA. ED workup showed: WBC 11.3, no anemia, creatinine 0.73 and GFR >60. Hip/pelvic XR showed possibility of fracture of the right surgical neck and severe right hip osteoarthritis. Right Knee XR negative for fracture. Will lumbar CT showed no acute osseous abnormality and multilevel disc bulges. Hip CT showed an impacted in mildly comminuted subcapital fracture of the proximal right femur and moderate to severe right hip osteoarthritis. Review of Systems Review of Systems: All systems reviewed & are unremarkable except as noted in HPI and below PMFSH Past Medical History Medical History Anxiety Shingles History of retinal detachment Age-related osteoporosis without current pathological fracture Family history of colon cancer History of bladder cancer HLD (hyperlipidemia) Surgical History Surgical History History of appendectomy History of cholecystectomy Bilateral retinal detachment Family History Family History Mother Carcinoma of colon Family history of coronary artery disease Sibling Carcinoma of colon Father Carcinoma of colon Social History Social History Smoking status: Former smoker Tobacco type: cigarettes Second hand tobacco smoke exposure: No Alcohol intake: current Alcohol use details: rare Substance use: never Substance use type: does not use Living arrangements: alone Occupation/Education: retired Gender identity (if verbalized by the patient): Female Meds Home Medications and Allergies Home Medications ?Medication ?Instructions ?Recorded ?Confirmed ?Type cetirizine 5 mg-pseudoephedrine ER 1 tablet PO Q12H #60 tabs 09/26/23 09/26/23 Rx 120 mg tablet,extended release,12hr (Zyrtec-D) ibandronate 150 mg tablet 150 mg PO MONTHLY #3 tabs 09/26/23 09/26/23 Rx Allergies Allergy/AdvReac Type Severity Reaction Status Date / Time No Known Allergies Allergy Verified 10/10/24 09:43 Vital Signs Vital Signs - 24 hr 10/10/24 09:37 Temperature 98.3 F Pulse Rate 89 Respiratory Rate 16 Blood Pressure 135/61 Pulse Oximetry 96 Oxygen Delivery Room Air Exam Narrative: A/Ox self/place/year and has poor to unreliable situational history, DP pulses intact. Const: General: comfortable and no acute distress Other: , female, frail, elderly HENMT: Face/Nose/Sinus: Normal nares present Mouth: Yes moist mucous membranes Eyes: General: appearance normal, both eyes and all related structures Sclera: sclerae normal Pupils: Equal, round and reactive pupils present EOM: EOMs intact bilaterally Resp: Effort & Inspection: normal respiratory effort Auscultation: clear to auscultation bilaterally Cardio: Rate: regular rate Rhythm: regular rhythm Other: S1-S2 present without murmur, rub, ectopy GI: Other: Abdomen soft, nondistended, nontender. Skin: General skin exam: normal color and no rashes or lesions noted Wounds: no wounds Neuro: Speech: normal speech Sensory Exam: normal sensation Other: A&O x3 (self, year, place). unreliable situational history provided. Moving all extremities. 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 Extrem: General: normal to inspection Other: DP pulses 2+ bilaterally. Psych: Mental Status: mental status grossly normal Other: Tangential thinking. Difficult to redirect. H&P: Results Labs Labs: Short CBC 10/10/24 Range/Units 11:45 WBC 11.3 H (4.5-10.0) K/mm3 Hgb 12.8 (12.0-15.0) g/dL Hct 37.9 (37.0-47.0) % Plt Count 175 (150-375) k/mm3 BMP 10/10/24 11:45 Sodium 135 L Potassium 4.2 Chloride 99 Carbon Dioxide 33 H BUN 22 H Creatinine 0.73 Glucose 105 Calcium 9.1 Liver Function 10/10/24 Range/Units 11:45 Total Bilirubin 1.1 (0.2-1.3) mg/dL AST 29 (14-36) U/L ALT 30 (6-35) U/L Alkaline Phosphatase 76 (38-126) U/L Albumin 3.6 (3.5-5.1) g/dL Assessment and Plan Assessment and plan (1) Fracture of femoral neck, right: Qualifiers: Encounter type: initial encounter Fracture type: closed Qualified Code(s): S72.001A - Fracture of unspecified part of neck of right femur, initial encounter for closed fracture Code(s): S72.001A - Fracture of unspecified part of neck of right femur, initial encounter for closed fracture Status: Acute Assessment and Plan: - hip/pelvis XR: Possibility of fracture in the right surgical neck cannot be excluded. CT evaluation is advised. Severe right hip osteoarthritic changes. - knee XR, right: Negative right knee radiographs. - lumbar CT: No acute osseous abnormality. Multilevel disc bulges with variable degrees of intervertebral foraminal narrowing. - hip CT: 1. Impacted and mildly comminuted subcapital fracture of the proximal right femur. 2. Moderate to severe right hip osteoarthritis. - orthopedics consulted, Raghu provided the following recs: Orthopedist discussed thinning of verses joint replacement with patient, patient opted in for pending NPO - analgesics p.r.n. - PT/OT eval and treat postoperatively - care coordination for rehab services Plan Diet: NPO GI Prophylaxis: Not currently indicated DVT Prophylaxis: SCDs Lines: peripheral Code Status: Full code Quality VTE Prophylaxis VTE prophylaxis: mechanical ordered Hospitalist [facility] Advance Care Plan I have confirmed that the patient's Advanced Care Plan is present, code status is documented, or surrogate decision maker is listed in patient medical record.: Yes Medication Reconciliation I have utilized all available resources to obtain, update and review the patients current medications (includes all prescriptions, OTC, herbals, cannabis, and nutritional supplements).: Yes
[2024-10-10] MEDS: MORPHINE SULFATE (*CRX) 4 MG/ML INJ IV PUSH (12:52)
[2024-10-10] MEDS: LACTATED RINGERS 1,000 ML 30 ML IV CONT ×2 (13:00→16:22)
--- NOTE | 2024-10-10 13:43 | P.PNAN_ITS ---
Anes - Initial Pre Proc Eval Procedure: Operation Date: 10/10/24 15:00 Proposed Procedures p Right Hip Pinning - Jose Krishnamurthy MD Date/Time: 10/10/24 13:43 Surgeon: Jose Krishnamurthy MD Pre Op Diagnosis: r groin pain Patient Data Age: 78 Gender: F Height: 1.68 m Weight: 45 kg Last Vital Signs Temp 98.3 F 10/10/24 09:37 Pulse 89 10/10/24 09:37 Resp 16 10/10/24 09:37 BP 135/61 10/10/24 09:37 Pulse Ox 96 10/10/24 09:37 O2 Del Method Room Air 10/10/24 09:37 Allergies Allergy/AdvReac Type Severity Reaction Status Date / Time No Known Allergies Allergy Verified 10/10/24 09:43 Home Medications ?Medication ?Instructions ?Recorded ?Confirmed ?Type cetirizine 5 mg-pseudoephedrine ER 1 tablet PO Q12H #60 tabs 09/26/23 09/26/23 Rx 120 mg tablet,extended release,12hr (Zyrtec-D) ibandronate 150 mg tablet 150 mg PO MONTHLY #3 tabs 09/26/23 09/26/23 Rx Laboratory Tests 10/10/24 11:45 WBC 11.3 H K/mm3 (4.5-10.0) RBC 3.91 L M/mm3 (4.2-5.4) Hgb 12.8 g/dL (12.0-15.0) Hct 37.9 % (37.0-47.0) MCV 96.9 fl (80-100) MCH 32.7 pg (26-34) MCHC 33.8 g/dl (32-36) RDW 12.7 % (11.5-14.5) Plt Count 175 k/mm3 (150-375) MPV 8.7 fl (7.4-10.4) Immature Gran % (Auto) 0.4 % (0-0.5) Neut % (Auto) 85.9 H % (45.5-73.1) Lymph % (Auto) 8.8 L % (18.3-44.2) [place] % (Auto) 3.9 % (2.6-8.5) Eos % (Auto) 0.5 % (0-4.4) Baso % (Auto) 0.5 % (0.2-1.2) Lymph # (Auto) 0.99 K/mm3 (0.9-3.2) [place] # (Auto) 0.4 K/mm3 (0.1-0.6) Eos # (Auto) 0.1 K/mm3 (0-0.3) Baso # (Auto) 0.1 K/mm3 (0.0-0.1) Abs Immat Gran (auto) 0.04 H K/mm3 (0.00-0.031) Absolute Neuts (auto) 9.7 H K/mm3 (1.3-6.7) Absolute Nucleated RBC 0.000 K/mm3 (0.0-0.012) Nucleated RBC % 0.0 % (0.0-0.2) Sodium 135 L mmol/L (137-145) Potassium 4.2 mmol/L (3.4-5.0) Chloride 99 mmol/L (98-107) Carbon Dioxide 33 H mmol/L (22-30) Anion Gap 3 L mmol/L (4-12) BUN 22 H mg/dL (7-17) Creatinine 0.73 mg/dL (0.7-1.0) Estim Creat Clear Calc 38 ml/min Estimated GFR > 60 (59 - ) Glucose 105 mg/dL (65-110) Calcium 9.1 mg/dL (8.4-10.2) Total Bilirubin 1.1 mg/dL (0.2-1.3) AST 29 U/L (14-36) ALT 30 U/L (6-35) Alkaline Phosphatase 76 U/L (38-126) Total Protein 7.0 g/dL (6.3-8.2) Albumin 3.6 g/dL (3.5-5.1) Patient hx anesthesia problems: none Family hx anesthesia problems: none Results Review: All pre-operative results and documents have been reviewed as part of the pre- operative evaluation. [facility] Past Medical History Medical History Anxiety Shingles History of retinal detachment Age-related osteoporosis without current pathological fracture Family history of colon cancer History of bladder cancer HLD (hyperlipidemia) Surgical History Surgical History History of appendectomy History of cholecystectomy Bilateral retinal detachment Family History Family History Mother Carcinoma of colon Family history of coronary artery disease Sibling Carcinoma of colon Father Carcinoma of colon Social History Social History Smoking status: Former smoker Tobacco type: cigarettes Second hand tobacco smoke exposure: No Alcohol intake: current Alcohol use details: rare Substance use: never Substance use type: does not use Living arrangements: alone Occupation/Education: retired Gender identity (if verbalized by the patient): Female Anes - Eval Final PreProcedure Day of Procedure 10/10/24 13:43 Patient weight: thin Heart: regular rate and rhythm Lungs: clear to auscultation Airway: Mallampati scale class II Neurological: alert and oriented Last oral intake: >/= 8 hours ASA classification: III Emergent: no Anesthetic plan: proceed Anesthesia type and monitoring: general LMA and standard monitoring Results Review: All pre-operative results and documents have been reviewed as part of the pre- operative evaluation. Hyperlipidemia, anxiety, hx of bladder cancer. EKG NSR. Mechanical fall on ice, now w hip fx. Eval by IM previously. Informed Consent: The patient's anesthetic plan and its attendant risks and benefits were discussed with the patient/family/POA. Questions were solicited and answers provided to the satisfaction of the patient/family/POA.
[2024-10-10] MEDS: VANCOMYCIN 750 MG/NS 250 ML 750 MG/250 ML BAG 250 MG IVPB (14:00)
[2024-10-10] MEDS: TRANEXAMIC ACID 1,000MG/ISO100 1,000 MG/100 ML BAG 200 MG IVPB (14:00)
--- NOTE | 2024-10-10 14:47 | WPDHPUPDATE1 ---
History and Physical Update Update Date/Time: 10/10/24 14:47 History and Physical has been reviewed, including an updated exam of the patient. There are NO changes in the patient's condition. Risks, benefits, and alternatives have been discussed and questions answered. Patient agrees to proceed with procedure.
[2024-10-10] MEDS: ceFAZolin 2 GM/D5W 50 ML 2 GM/50 ML BAG IVPB ×2 (14:51→21:15)
[2024-10-10] MEDS: ceFAZolin SODIUM 1 GM VIAL (15:40)
--- NOTE | 2024-10-10 16:05 | W.PM.PROC2 ---
Procedure Note - Detailed Date of Procedure 10/10/24 Pre-op Diagnosis Right femoral neck fracture Post-op Diagnosis Same Procedure Performed Open reduction internal fixation right hip fracture with pins Surgeon Jose Krishnamurthy MD Anesthesia General Description of Procedure Patient brought to operating room #8. A general anesthetic was administered. The patient was placed on the operating table and a general anesthetic was administered. With the help of the fracture table the fracture was positioned. After sterile prep and drape a longitudinal incision made over the the right hip. Dissection carried down to the femoral shaft. And 3 screws placed 75,75, and 80. X-rays in the AP and lateral plane demonstrate good alignment of the screws. At this point the wound irrigated hemostasis obtained. The wound was closed with #1 Vicryl, 2-0 Vicryl and amanda. Patient tolerated procedure well left the operating room satisfactory condition. [employer] Cannulated screws 7.3 Estimated Blood Loss 100 Complications No immediate complications Condition Stable Disposition PACU [facility] Billing Surgery - Charge Forward: Surgery Billing (17107 Pinning Hip FX)
--- NOTE | 2024-10-10 17:40 | ADMGEN ---
This patient, Yulisa Braga, was admitted to [facility] Surg Room 327-01. Patient/family oriented to hospital policies and general routines including ID bracelet, bed and alarms, visiting hours, pain management, procedures, bathroom and other care routines, personal items, smoking policy, room service/diet, and visiting hours. Information on how to activate the Rapid Response Team has been discussed. Patient/Family are encouraged to report perceived risks to care and to ask questions if they do not understand what they are told or what they should do.
[2024-10-10] MEDS: RIVAROXABAN 10 MG TABLET PO (18:12)
[2024-10-10] MEDS: SENNA/DOCUSATE SODIUM TABLET 2 TAB PO (18:12)
[2024-10-10] MEDS: SODIUM CHLORIDE 0.9% IV 1,000 ML 125 ML IV CONT (18:12)
[2024-10-10] MEDS: traMADol HCL (*CRX) 50 MG TABLET PO (21:15)
[2024-10-11] VITALS (9 sets, daily range): BP systolic 94–142; BP diastolic 38–70; PULSE 73–89; RESP 13–20; TEMP 36.4–37.1; O2SAT 90–95
[2024-10-11] MEDS: HYDROcodone/acetaminophen (*CRX) 7.5-325 MG TABLET 1 TAB PO (04:10)
[2024-10-11] MEDS: SODIUM CHLORIDE 0.9% IV 1,000 ML 125 ML IV CONT (04:28)
--- NOTE | 2024-10-11 04:42 | PC.NURSE ---
Pt has had multiple complaints this shift. Pt was very upset by having a grady catheter. Pt's catheter had 250 ml out and appeared to be draining without difficulties. Pt continued to complain, so grady was removed. Pt has had a lot of confusion this shift and has tried to get out of bed multiple times, once succeeding and almost falling as staff got into room. Pt has been educated multiple times throughout this shift, about her weight bearing status, safety awareness, using the call light for assistance, and waiting for help. Pt has been easily agitated and very difficult to re-direct throughout this shift. Pt has required frequent visual reminders that she did in fact have hip surgery, by showing her the dressing over her site. Pt continues to try to get out of bed, stating I need to clean my house . Pt has been moved to room 332 to be closer to the nurses station for safety.
[2024-10-11] MEDS: ceFAZolin 2 GM/D5W 50 ML 2 GM/50 ML BAG IVPB ×2 (05:47→16:24)
[2024-10-11 07:22] LABS: Basophils Absolute Auto 0.1 K/mm3 (0.0-0.1); Basophils Percent Auto 0.5 % (0.2-1.2); Eosinophils Absolute Auto 0.1 K/mm3 (0-0.3); Eosinophils Percent Auto 0.6 % (0-4.4); Hematocrit 32.3 % (37.0-47.0); Hemoglobin 10.5 g/dL (12.0-15.0); Immature Granulocyte Absolute 0.06 K/mm3 (0.00-0.031); Immature Granulocyte Percent A 0.6 % (0-0.5); Mean Corpuscular HGB Conc 32.5 g/dl (32-36); Mean Corpuscular Hemoglobin 32.9 pg (26-34); Mean Corpuscular Volume 101.3 fl (80-100); Mean Platelet Volume 9.5 fl (7.4-10.4); Monocytes Absolute Auto 0.5 K/mm3 (0.1-0.6); Neutrophils Absolute Auto 8.5 K/mm3 (1.3-6.7); Neutrophils Percent Auto 85.3 % (45.5-73.1); Platelet Count Result 146 k/mm3 (150-375); Red Blood Count 3.19 M/mm3 (4.2-5.4); Red Cell Distribution Width 12.9 % (11.5-14.5); White Blood Count 9.9 K/mm3 (4.5-10.0)
[2024-10-11 07:33] LABS: Anion Gap 3 mmol/L (4-12); Blood Urea Nitrogen 24 mg/dL (7-17); Calcium 7.8 mg/dL (8.4-10.2); Carbon Dioxide 28 mmol/L (22-30); Chloride 104 mmol/L (98-107); Estimated CRCL calculation 36 ml/min; Estimated Glomerular Filt Rate > 60; Glucose 94 mg/dL (65-110); Potassium 4.1 mmol/L (3.4-5.0); Sodium 135 mmol/L (137-145)
[2024-10-11] MEDS: polyethylene glycoL 3350 17 GM POWD.PACK PO (10:46)
--- NOTE | 2024-10-11 15:27 | PM.IMPN ---
Progress Note: A&P Assessment and Plan (1) Fracture of femoral neck, right: Qualifiers: Encounter type: initial encounter Fracture type: closed Qualified Code(s): S72.001A - Fracture of unspecified part of neck of right femur, initial encounter for closed fracture Code(s): S72.001A - Fracture of unspecified part of neck of right femur, initial encounter for closed fracture Status: Acute Assessment and Plan: - hip/pelvis XR: Possibility of fracture in the right surgical neck cannot be excluded. CT evaluation is advised. Severe right hip osteoarthritic changes. - knee XR, right: Negative right knee radiographs. - lumbar CT: No acute osseous abnormality. Multilevel disc bulges with variable degrees of intervertebral foraminal narrowing. - hip CT: 1. Impacted and mildly comminuted subcapital fracture of the proximal right femur. 2. Moderate to severe right hip osteoarthritis. - orthopedics consulted, Raghu provided the following recs: Orthopedist discussed thinning of verses joint replacement with patient, patient opted in for pending NPO - analgesics p.r.n. - PT/OT eval and treat postoperatively - care coordination for rehab services 10/11/24: Status post ORIF right hip. PRN pain control PRN anti-emetics. Consult PT and OT and prepare for rehab. Time Spent With Patient Time with patient: 15 - 25 minutes Subjective Date/time seen: 10/11/24 15:27 Interval history: This 78 year old female pt was examined at the bedside and medically the pt appears to be stable without complaints. She underwent ORIF yesterday. She is being evaluated by therapy for rehab and has no acute medical complaints. Review of Systems Review of Systems: All systems reviewed & are unremarkable except as noted in HPI and below Exam Const: General: comfortable and no acute distress Other: Thin female pt sitting up in bed talking to family who is visiting, in no acute distress. HENMT: Mouth: Yes moist mucous membranes Eyes: General: appearance normal, both eyes and all related structures Neck: Neck: supple and no JVD Resp: Effort & Inspection: normal respiratory effort Auscultation: clear to auscultation bilaterally Cardio: Rate: regular rate Rhythm: regular rhythm Heart sounds: no gallops, no murmurs and no rubs GI: GI Palp: Yes Soft to palpation, No Tenderness to palpation present (GI), No Guarding due to palpation present (GI) and No Hernia present Auscultation: normal bowel sounds Skin: General skin exam: normal color, no rashes or lesions noted and no erythema Lesions: lesion noted (surgical incision C/D/I) Neuro: Speech: normal speech Extrem: General: normal exam except as noted Other: Surgical wound to Right hip. Psych: Mental Status: mental status grossly normal Affect: Anxious affect present Objective Data Vital Signs Vital Signs: Vital Signs - 24 hr 10/10/24 16:22 10/10/24 16:35 10/10/24 16:50 Temperature 97.4 F L Pulse Rate 84 75 82 Respiratory Rate 17 12 16 Blood Pressure 120/52 L 93/39 L 97/44 L Pulse Oximetry 100 92 92 Oxygen Delivery Nasal Cannula Nasal Cannula Room Air Oxygen Flow Rate 5 5 10/10/24 17:05 10/10/24 17:20 10/10/24 17:30 Temperature 98.1 F Pulse Rate 81 79 77 Respiratory Rate 16 16 16 Blood Pressure 120/59 L 103/48 L 127/87 Pulse Oximetry 98 100 100 Oxygen Delivery Nasal Cannula Nasal Cannula Oxygen Flow Rate 3 3 10/10/24 17:45 10/10/24 18:15 10/10/24 18:53 Temperature 98.5 F 97.8 F Pulse Rate 75 80 Respiratory Rate 16 16 Blood Pressure 114/51 L 106/48 L Pulse Oximetry 100 100 100 Oxygen Delivery Nasal Cannula Oxygen Flow Rate 2 10/10/24 19:09 10/10/24 20:00 10/11/24 00:00 Temperature 97.6 F 98.5 F Pulse Rate 80 88 Respiratory Rate 18 18 Blood Pressure 103/61 94/50 L Pulse Oximetry 100 91 Oxygen Delivery Room Air Oxygen Flow Rate 10/11/24 01:05 10/11/24 06:59 10/11/24 08:00 Temperature 98.5 F 97.8 F 97.7 F Pulse Rate 88 73 76 Respiratory Rate 20 20 18 Blood Pressure 94/50 L 110/70 108/38 L Pulse Oximetry 91 90 90 Oxygen Delivery Oxygen Flow Rate 10/11/24 08:36 10/11/24 11:09 10/11/24 14:00 Temperature 97.7 F 98.7 F Pulse Rate 76 89 Respiratory Rate 18 16 Blood Pressure 123/48 L 107/56 L Pulse Oximetry 91 92 Oxygen Delivery Room Air Oxygen Flow Rate Intake/Output Intake/Output: Intake & Output 10/08/24 10/09/24 10/10/24 10/11/24 23:59 23:59 23:59 23:59 Intake Total 500 2440 Balance 500 2440 Meds/Results Medications: Active Medications Generic Name Dose Route Start Last Admin Trade Name Freq PRN Reason Stop Dose Admin Hydrocodone Bitart/Acetaminophen 1 tab 10/10/24 17:24 Hydrocodone/Acetaminophen (*Crx) 5-325 Mg Tablet PO Q4H PRN Pain Rated 4-6 Hydrocodone Bitart/Acetaminophen 1 tab 10/10/24 17:24 10/11/24 04:10 Hydrocodone/Acetaminophen (*Crx) 7.5-325 Mg Tablet PO 1 tab Q4H PRN Administration Pain Rated 7-10 Celecoxib 200 mg 10/11/24 08:00 Celecoxib 200 Mg Capsule PO DAILY@0800 ANGELA Hydromorphone HCl 1 mg 10/10/24 17:24 Hydromorphone Hcl Inj (*Crx) 1 Mg/Ml Syr IV PUSH Q2H PRN Breakthrough Pain Rated 7-10 or NPO Hydromorphone HCl 0.5 mg 10/10/24 17:24 Hydromorphone Hcl Inj (*Crx) 1 Mg/Ml Syr IV PUSH Q2H PRN Breakthrough Pain Rated 4-6 or NPO Hydroxyzine Pamoate 50 mg 10/10/24 17:24 Hydroxyzine Pamoate 25 Mg Capsule PO Q4H PRN Itching Sodium Chloride 1,000 mls @ 125 mls/hr 10/10/24 17:24 10/11/24 12:45 Normal Saline Iv IV CONT Infused .Q8H ANGELA Infusion Cefazolin Sodium 2 gm in 50 mls @ 100 mls/hr 10/10/24 23:00 10/11/24 05:47 Ancef 2 Gm/D5w 50 Ml IVPB 10/11/24 15:29 100 mls/hr Q8H ANGELA Administration Ibuprofen 800 mg in 200 mls @ 400 mls/hr 10/10/24 17:24 Caldolor 800 Mg/200 Ml IVPB Q6H PRN Breakthrough Pain Rated 1-3 or NPO Loratadine/Pseudoephedrine Sulfate 1 tab 10/11/24 09:00 10/11/24 10:45 Loratadine/Pseudoephedrine (*Crx) 10/240 Mg Tablet Er 24 Hr PO Not Given QAM [facility] Miscellaneous Information 0 each 10/11/24 00:01 Ibandronate 150mg Nonform Next Dose Not Due Til Nov 08 Is It Ok To Hold??? XX 11/10/24 00:00 CLARIFY [facility] Naloxone HCl 0.1 mg 10/10/24 17:24 Naloxone Hcl 0.4 Mg/Ml Vial IV PUSH Q2M PRN Opiate Reversal Non-Formulary Medication 150 mg 10/11/24 09:00 Ibandronate PO 11/10/24 08:59 MONTHLY [facility] Ondansetron HCl 4 mg 10/10/24 17:24 Ondansetron Inj 4 Mg/2 Ml Vial IV PUSH Q4H PRN Nausea And Vomiting Polyethylene Glycol 17 gm 10/11/24 09:00 10/11/24 10:46 Polyethylene Glycol 3350 17 Gm Powd.Pack PO 17 gm QAM [facility] Administration Rivaroxaban 10 mg 10/10/24 17:24 10/10/24 18:12 Rivaroxaban 10 Mg Tablet PO 10 mg DAILY@17 [facility] Administration Senna/Docusate Sodium 2 tab 10/10/24 17:24 10/11/24 10:45 Senna/Docusate Sodium Tablet PO Not Given BID [facility] Tramadol HCl 50 mg 10/10/24 17:24 10/10/24 21:15 Tramadol Hcl (*Crx) 50 Mg Tablet PO 50 mg Q4H PRN Administration Pain Rated 1-3 Radiology Results: ITS Impressions Hip/Pelvis X-Ray 10/10/24 10:47 IMPRESSION: Possibility of fracture in the right surgical neck cannot be excluded. CT evaluation is advised. Severe right hip osteoarthritic changes. Knee X-Ray 10/10/24 10:50 IMPRESSION: 1. Negative right knee radiographs. Lumbar Spine CT 10/10/24 10:51 IMPRESSION: No acute osseous abnormality. Multilevel disc bulges with variable degrees of intervertebral foraminal narrowing. Hip CT 10/10/24 11:19 IMPRESSION: 1. Impacted and mildly comminuted subcapital fracture of the proximal right femur. 2. Moderate to severe right hip osteoarthritis. Intraoperative X-Ray 10/10/24 16:47 IMPRESSION: Fluoroscopy used during Right hip pinning with 3 lag screws. Labs Labs: Laboratory Results - last 24 hr 10/10/24 10/11/24 14:46 06:47 WBC 9.9 RBC 3.19 L Hgb 10.5 L Hct 32.3 L MCV 101.3 H MCH 32.9 MCHC 32.5 RDW 12.9 Plt Count 146 L MPV 9.5 Immature Gran % (Auto) 0.6 H Neut % (Auto) 85.3 H Lymph % (Auto) 8.0 L [place] % (Auto) 5.0 Eos % (Auto) 0.6 Baso % (Auto) 0.5 Lymph # (Auto) 0.80 L [place] # (Auto) 0.5 Eos # (Auto) 0.1 Baso # (Auto) 0.1 Abs Immat Gran (auto) 0.06 H Absolute Neuts (auto) 8.5 H Absolute Nucleated RBC 0.000 Nucleated RBC % 0.0 Sodium 135 L Potassium 4.1 Chloride 104 Carbon Dioxide 28 Anion Gap 3 L BUN 24 H Creatinine 0.78 Estim Creat Clear Calc 36 Estimated GFR > 60 Glucose 94 Calcium 7.8 L Antibody Screen Negative Quality VTE Prophylaxis VTE prophylaxis: pharmacologic ordered
[2024-10-11] MEDS: CELECOXIB 200 MG CAPSULE PO (16:18)
[2024-10-11] MEDS: RIVAROXABAN 10 MG TABLET PO (16:19)
[2024-10-11] MEDS: SENNA/DOCUSATE SODIUM TABLET 2 TAB PO (16:19)
--- NOTE | 2024-10-11 16:27 | P.PNOP_ITS ---
Progress Note: A&P Assessment and Plan (1) Fracture of femoral neck, right: Qualifiers: Encounter type: initial encounter Fracture type: closed Qualified Code(s): S72.001A - Fracture of unspecified part of neck of right femur, initial encounter for closed fracture Code(s): S72.001A - Fracture of unspecified part of neck of right femur, initial encounter for closed fracture Status: Acute Assessment and Plan: S/P Right Hip pinning. Doing ok. Will need rehab. Subjective Subjective Date/Time Seen: 10/11/24 16:27 Post Op day: 1 Principal diagnosis: Right Hip Fracture Review of Systems Musculoskeletal: Musculoskeletal: Reports arthralgias, Reports joint swelling and Reports stiffness Exam Narrative: Wiggles toes. NVI Dressing intact Objective Data Vital Signs Vital Signs: Vital Signs - 24 hr 10/10/24 16:35 10/10/24 16:50 10/10/24 17:05 Temperature Pulse Rate 75 82 81 Respiratory Rate 12 16 16 Blood Pressure 93/39 L 97/44 L 120/59 L Pulse Oximetry 92 92 98 Oxygen Delivery Nasal Cannula Room Air Nasal Cannula Oxygen Flow Rate 5 3 10/10/24 17:20 10/10/24 17:30 10/10/24 17:45 Temperature 98.1 F 98.5 F Pulse Rate 79 77 75 Respiratory Rate 16 16 16 Blood Pressure 103/48 L 127/87 114/51 L Pulse Oximetry 100 100 100 Oxygen Delivery Nasal Cannula Oxygen Flow Rate 3 10/10/24 18:15 10/10/24 18:53 10/10/24 19:09 Temperature 97.8 F 97.6 F Pulse Rate 80 80 Respiratory Rate 16 18 Blood Pressure 106/48 L 103/61 Pulse Oximetry 100 100 100 Oxygen Delivery Nasal Cannula Oxygen Flow Rate 2 10/10/24 20:00 10/11/24 00:00 10/11/24 01:05 Temperature 98.5 F 98.5 F Pulse Rate 88 88 Respiratory Rate 18 20 Blood Pressure 94/50 L 94/50 L Pulse Oximetry 91 91 Oxygen Delivery Room Air Oxygen Flow Rate 10/11/24 06:59 10/11/24 08:00 10/11/24 08:36 Temperature 97.8 F 97.7 F Pulse Rate 73 76 Respiratory Rate 20 18 Blood Pressure 110/70 108/38 L Pulse Oximetry 90 90 Oxygen Delivery Room Air Oxygen Flow Rate 10/11/24 11:09 10/11/24 14:00 Temperature 97.7 F 98.7 F Pulse Rate 76 89 Respiratory Rate 18 16 Blood Pressure 123/48 L 107/56 L Pulse Oximetry 91 92 Oxygen Delivery Oxygen Flow Rate Intake/Output Intake/Output: Intake & Output 10/08/24 10/09/24 10/10/24 10/11/24 23:59 23:59 23:59 23:59 Intake Total 500 2490 Balance 500 2490 Meds/Results Medications: Active Medications Generic Name Dose Route Start Last Admin Trade Name Freq PRN Reason Stop Dose Admin Hydrocodone Bitart/Acetaminophen 1 tab 10/10/24 17:24 Hydrocodone/Acetaminophen (*Crx) 5-325 Mg Tablet PO Q4H PRN Pain Rated 4-6 Hydrocodone Bitart/Acetaminophen 1 tab 10/10/24 17:24 10/11/24 04:10 Hydrocodone/Acetaminophen (*Crx) 7.5-325 Mg Tablet PO 1 tab Q4H PRN Administration Pain Rated 7-10 Celecoxib 200 mg 10/11/24 08:00 10/11/24 16:18 Celecoxib 200 Mg Capsule PO 200 mg DAILY@0800 ANGELA Administration Hydromorphone HCl 1 mg 10/10/24 17:24 Hydromorphone Hcl Inj (*Crx) 1 Mg/Ml Syr IV PUSH Q2H PRN Breakthrough Pain Rated 7-10 or NPO Hydromorphone HCl 0.5 mg 10/10/24 17:24 Hydromorphone Hcl Inj (*Crx) 1 Mg/Ml Syr IV PUSH Q2H PRN Breakthrough Pain Rated 4-6 or NPO Hydroxyzine Pamoate 50 mg 10/10/24 17:24 Hydroxyzine Pamoate 25 Mg Capsule PO Q4H PRN Itching Sodium Chloride 1,000 mls @ 125 mls/hr 10/10/24 17:24 10/11/24 16:25 Normal Saline Iv IV CONT Not Given .Q8H ANGELA Ibuprofen 800 mg in 200 mls @ 400 mls/hr 10/10/24 17:24 Caldolor 800 Mg/200 Ml IVPB Q6H PRN Breakthrough Pain Rated 1-3 or NPO Loratadine/Pseudoephedrine Sulfate 1 tab 10/11/24 09:00 10/11/24 10:45 Loratadine/Pseudoephedrine (*Crx) 10/240 Mg Tablet Er 24 Hr PO Not Given QAM [facility] Miscellaneous Information 0 each 10/11/24 00:01 Ibandronate 150mg Nonform Next Dose Not Due Til Nov 08 Is It Ok To Hold??? XX 11/10/24 00:00 CLARIFY [facility] Naloxone HCl 0.1 mg 10/10/24 17:24 Naloxone Hcl 0.4 Mg/Ml Vial IV PUSH Q2M PRN Opiate Reversal Non-Formulary Medication 150 mg 10/11/24 09:00 Ibandronate PO 11/10/24 08:59 MONTHLY [facility] Ondansetron HCl 4 mg 10/10/24 17:24 Ondansetron Inj 4 Mg/2 Ml Vial IV PUSH Q4H PRN Nausea And Vomiting Polyethylene Glycol 17 gm 10/11/24 09:00 10/11/24 10:46 Polyethylene Glycol 3350 17 Gm Powd.Pack PO 17 gm QAM ANGELA Administration Rivaroxaban 10 mg 10/10/24 17:24 10/11/24 16:19 Rivaroxaban 10 Mg Tablet PO 10 mg DAILY@17 [facility] Administration Senna/Docusate Sodium 2 tab 10/10/24 17:24 10/11/24 16:19 Senna/Docusate Sodium Tablet PO 2 tab BID ANGELA Administration Tramadol HCl 50 mg 10/10/24 17:24 10/10/24 21:15 Tramadol Hcl (*Crx) 50 Mg Tablet PO 50 mg Q4H PRN Administration Pain Rated 1-3 Radiology Results: ITS Impressions Hip/Pelvis X-Ray 10/10/24 10:47 IMPRESSION: Possibility of fracture in the right surgical neck cannot be excluded. CT evaluation is advised. Severe right hip osteoarthritic changes. Knee X-Ray 10/10/24 10:50 IMPRESSION: 1. Negative right knee radiographs. Lumbar Spine CT 10/10/24 10:51 IMPRESSION: No acute osseous abnormality. Multilevel disc bulges with variable degrees of intervertebral foraminal narrowing. Hip CT 10/10/24 11:19 IMPRESSION: 1. Impacted and mildly comminuted subcapital fracture of the proximal right femur. 2. Moderate to severe right hip osteoarthritis. Intraoperative X-Ray 10/10/24 16:47 IMPRESSION: Fluoroscopy used during Right hip pinning with 3 lag screws. Labs Labs: Laboratory Results - last 24 hr 10/11/24 06:47 WBC 9.9 RBC 3.19 L Hgb 10.5 L Hct 32.3 L MCV 101.3 H MCH 32.9 MCHC 32.5 RDW 12.9 Plt Count 146 L MPV 9.5 Immature Gran % (Auto) 0.6 H Neut % (Auto) 85.3 H Lymph % (Auto) 8.0 L [place] % (Auto) 5.0 Eos % (Auto) 0.6 Baso % (Auto) 0.5 Lymph # (Auto) 0.80 L [place] # (Auto) 0.5 Eos # (Auto) 0.1 Baso # (Auto) 0.1 Abs Immat Gran (auto) 0.06 H Absolute Neuts (auto) 8.5 H Absolute Nucleated RBC 0.000 Nucleated RBC % 0.0 Sodium 135 L Potassium 4.1 Chloride 104 Carbon Dioxide 28 Anion Gap 3 L BUN 24 H Creatinine 0.78 Estim Creat Clear Calc 36 Estimated GFR > 60 Glucose 94 Calcium 7.8 L
[2024-10-12 01:32] VITALS: BP 110/62; PULSE 83; RESP 14; TEMP 36.7; O2SAT 90
[2024-10-12] MEDS: HYDROcodone/acetaminophen (*CRX) 7.5-325 MG TABLET 1 TAB PO (01:38)
[2024-10-12] MEDS: hydrOXYzine pamoate 25 MG CAPSULE 50 MG PO (01:39)
[2024-10-12 05:34] VITALS: BP 124/55; PULSE 85; RESP 13; TEMP 36.9; O2SAT 90
[2024-10-12 06:48] LABS: Basophils Absolute Auto 0.1 K/mm3 (0.0-0.1); Basophils Percent Auto 0.9 % (0.2-1.2); Eosinophils Absolute Auto 0.3 K/mm3 (0-0.3); Eosinophils Percent Auto 4.4 % (0-4.4); Hematocrit 32.2 % (37.0-47.0); Hemoglobin 10.7 g/dL (12.0-15.0); Immature Granulocyte Absolute 0.02 K/mm3 (0.00-0.031); Immature Granulocyte Percent A 0.3 % (0-0.5); Lymphocytes Absolute Auto 1.44 K/mm3 (0.9-3.2); Lymphocytes Percent Auto 20.6 % (18.3-44.2); Mean Corpuscular HGB Conc 33.2 g/dl (32-36); Mean Corpuscular Hemoglobin 32.9 pg (26-34); Mean Corpuscular Volume 99.1 fl (80-100); Mean Platelet Volume 9.7 fl (7.4-10.4); Monocytes Absolute Auto 0.5 K/mm3 (0.1-0.6); Monocytes Percent Auto 7.2 % (2.6-8.5); Neutrophils Absolute Auto 4.7 K/mm3 (1.3-6.7); Neutrophils Percent Auto 66.6 % (45.5-73.1); Platelet Count Result 155 k/mm3 (150-375); Red Blood Count 3.25 M/mm3 (4.2-5.4); Red Cell Distribution Width 13.1 % (11.5-14.5)
[2024-10-12 06:57] LABS: Alanine Aminotransferase 16 U/L (6-35); Alkaline Phosphatase 56 U/L (38-126); Anion Gap 2 mmol/L (4-12); Aspartate Amino Transferase 42 U/L (14-36); Bilirubin,Total 0.6 mg/dL (0.2-1.3); Blood Urea Nitrogen 19 mg/dL (7-17); Calcium 8.1 mg/dL (8.4-10.2); Carbon Dioxide 31 mmol/L (22-30); Chloride 104 mmol/L (98-107); Estimated CRCL calculation 42 ml/min; Estimated Glomerular Filt Rate > 60; Glucose 88 mg/dL (65-110); Sodium 137 mmol/L (137-145)
[2024-10-12 10:00] VITALS: BP 129/46; PULSE 82; RESP 16; TEMP 37.1; O2SAT 94
[2024-10-12] MEDS: CELECOXIB 200 MG CAPSULE PO (10:50)
[2024-10-12] MEDS: SENNA/DOCUSATE SODIUM TABLET 2 TAB PO ×2 (10:51→18:31)
[2024-10-12] MEDS: polyethylene glycoL 3350 17 GM POWD.PACK PO (10:51)
--- NOTE | 2024-10-12 12:16 | P.PNIM_ITS ---
Progress Note: A&P Assessment and Plan (1) Fracture of femoral neck, right: Qualifiers: Encounter type: initial encounter Fracture type: closed Qualified Code(s): S72.001A - Fracture of unspecified part of neck of right femur, initial encounter for closed fracture Code(s): S72.001A - Fracture of unspecified part of neck of right femur, initial encounter for closed fracture Status: Acute Assessment and Plan: S/P ORIF right hip. * PRN pain control * PRN anti-emetics. * PT and OT, discharge pending rehab. - hip/pelvis XR: Possibility of fracture in the right surgical neck cannot be excluded. CT evaluation is advised. Severe right hip osteoarthritic changes. - knee XR, right: Negative right knee radiographs. - lumbar CT: No acute osseous abnormality. Multilevel disc bulges with variable degrees of intervertebral foraminal narrowing. - hip CT: 1. Impacted and mildly comminuted subcapital fracture of the proximal right femur. 2. Moderate to severe right hip osteoarthritis. - orthopedics consulted, Raghu provided the following recs: Orthopedist discussed thinning of verses joint replacement with patient, patient opted in for pending NPO - analgesics p.r.n. - PT/OT eval and treat postoperatively - care coordination for rehab services Time Spent With Patient Time: 57 minutes Subjective Date/time seen: 10/12/24 12:16 Interval history: Feeling well. No new changes. Medically stable. S/P ORIF 10/10. She is being evaluated by therapy for rehab and has no acute medical complaints. Review of Systems Review of Systems: All systems reviewed & are unremarkable except as noted in HPI and below Exam Narrative: General - Awake and alert. No acute distress Eyes - PERRLA, EOM intact ENT - No thrush, No erythema Neck - No noticeable or palpable swelling Lymph Nodes - No lymphadenopathy Cardiovascular - RRR no m/r/g, no JVD Lungs: Clear to auscultation, No wheezing, use of accessory muscles, no crackles or wheezes. Skin - Skin warm and dry, no wounds or rashes Abdomen - Normal bowel sounds, abdomen soft and nontender Extremities - No edema, cyanosis or clubbing Musculoskeletal - 5/5 strength, normal range of motion, no swollen or erythematous joints. Neurological ? Alert and oriented x 2-3, CN 2-12 grossly intact. Judgement questionable Psych: Normal mood and affect, pleasant Objective Data Vital Signs Vital Signs: Vital Signs - 24 hr 10/11/24 14:00 10/11/24 18:00 10/11/24 20:00 Temperature 98.7 F 97.6 F Pulse Rate 89 75 85 Respiratory Rate 16 18 13 Blood Pressure 107/56 L 136/56 L Pulse Oximetry 92 95 91 Oxygen Delivery Room Air 10/11/24 21:36 10/12/24 01:32 10/12/24 05:34 Temperature 98.2 F 98.1 F 98.4 F Pulse Rate 85 83 85 Respiratory Rate 13 14 13 Blood Pressure 142/53 H 110/62 124/55 L Pulse Oximetry 91 90 90 Oxygen Delivery 10/12/24 10:00 Temperature 98.7 F Pulse Rate 82 Respiratory Rate 16 Blood Pressure 129/46 L Pulse Oximetry 94 Oxygen Delivery Intake/Output Intake/Output: Intake & Output 10/09/24 10/10/24 10/11/24 10/12/24 23:59 23:59 23:59 23:59 Intake Total 500 2820 120 Balance 500 2820 120 Meds/Results Medications: Active Medications Generic Name Dose Route Start Last Admin Trade Name Freq PRN Reason Stop Dose Admin Hydrocodone Bitart/Acetaminophen 1 tab 10/10/24 17:24 Hydrocodone/Acetaminophen (*Crx) 5-325 Mg Tablet PO Q4H PRN Pain Rated 4-6 Hydrocodone Bitart/Acetaminophen 1 tab 10/10/24 17:24 10/12/24 01:38 Hydrocodone/Acetaminophen (*Crx) 7.5-325 Mg Tablet PO 1 tab Q4H PRN Administration Pain Rated 7-10 Celecoxib 200 mg 10/11/24 08:00 10/12/24 10:50 Celecoxib 200 Mg Capsule PO 200 mg DAILY@0800 ANGELA Administration Hydromorphone HCl 1 mg 10/10/24 17:24 Hydromorphone Hcl Inj (*Crx) 1 Mg/Ml Syr IV PUSH Q2H PRN Breakthrough Pain Rated 7-10 or NPO Hydromorphone HCl 0.5 mg 10/10/24 17:24 Hydromorphone Hcl Inj (*Crx) 1 Mg/Ml Syr IV PUSH Q2H PRN Breakthrough Pain Rated 4-6 or NPO Hydroxyzine Pamoate 50 mg 10/10/24 17:24 10/12/24 01:39 Hydroxyzine Pamoate 25 Mg Capsule PO 50 mg Q4H PRN Administration Itching Ibuprofen 800 mg in 200 mls @ 400 mls/hr 10/10/24 17:24 Caldolor 800 Mg/200 Ml IVPB Q6H PRN Breakthrough Pain Rated 1-3 or NPO Loratadine/Pseudoephedrine Sulfate 1 tab 10/11/24 09:00 10/12/24 10:50 Loratadine/Pseudoephedrine (*Crx) 10/240 Mg Tablet Er 24 Hr PO Not Given QAM [facility] Miscellaneous Information 0 each 10/11/24 00:01 Ibandronate 150mg Nonform Next Dose Not Due Til Nov 08 Is It Ok To Hold??? XX 11/10/24 00:00 CLARIFY [facility] Naloxone HCl 0.1 mg 10/10/24 17:24 Naloxone Hcl 0.4 Mg/Ml Vial IV PUSH Q2M PRN Opiate Reversal Non-Formulary Medication 150 mg 10/11/24 09:00 Ibandronate PO 11/10/24 08:59 [facility] Ondansetron HCl 4 mg 10/10/24 17:24 Ondansetron Inj 4 Mg/2 Ml Vial IV PUSH Q4H PRN Nausea And Vomiting Polyethylene Glycol 17 gm 10/11/24 09:00 10/12/24 10:51 Polyethylene Glycol 3350 17 Gm Powd.Pack PO 17 gm QAM ANGELA Administration Rivaroxaban 10 mg 10/10/24 17:24 10/11/24 16:19 Rivaroxaban 10 Mg Tablet PO 10 mg DAILY@17 ANGELA Administration Senna/Docusate Sodium 2 tab 10/10/24 17:24 10/12/24 10:51 Senna/Docusate Sodium Tablet PO 2 tab BID ANGELA Administration Tramadol HCl 50 mg 10/10/24 17:24 10/10/24 21:15 Tramadol Hcl (*Crx) 50 Mg Tablet PO 50 mg Q4H PRN Administration Pain Rated 1-3 Radiology Results: ITS Impressions Hip/Pelvis X-Ray 10/10/24 10:47 IMPRESSION: Possibility of fracture in the right surgical neck cannot be excluded. CT evaluation is advised. Severe right hip osteoarthritic changes. Knee X-Ray 10/10/24 10:50 IMPRESSION: 1. Negative right knee radiographs. Lumbar Spine CT 10/10/24 10:51 IMPRESSION: No acute osseous abnormality. Multilevel disc bulges with variable degrees of intervertebral foraminal narrowing. Hip CT 10/10/24 11:19 IMPRESSION: 1. Impacted and mildly comminuted subcapital fracture of the proximal right femur. 2. Moderate to severe right hip osteoarthritis. Intraoperative X-Ray 10/10/24 16:47 IMPRESSION: Fluoroscopy used during Right hip pinning with 3 lag screws. Labs Labs: Laboratory Results - last 24 hr 10/12/24 06:22 WBC 7.0 RBC 3.25 L Hgb 10.7 L Hct 32.2 L MCV 99.1 MCH 32.9 MCHC 33.2 RDW 13.1 Plt Count 155 MPV 9.7 Immature Gran % (Auto) 0.3 Neut % (Auto) 66.6 Lymph % (Auto) 20.6 [place] % (Auto) 7.2 Eos % (Auto) 4.4 Baso % (Auto) 0.9 Lymph # (Auto) 1.44 [place] # (Auto) 0.5 Eos # (Auto) 0.3 Baso # (Auto) 0.1 Abs Immat Gran (auto) 0.02 Absolute Neuts (auto) 4.7 Absolute Nucleated RBC 0.000 Nucleated RBC % 0.0 Sodium 137 Potassium 4.0 Chloride 104 Carbon Dioxide 31 H Anion Gap 2 L BUN 19 H Creatinine 0.65 L Estim Creat Clear Calc 42 Estimated GFR > 60 Glucose 88 Calcium 8.1 L Total Bilirubin 0.6 AST 42 H ALT 16 Alkaline Phosphatase 56 Total Protein 5.0 L Albumin 3.0 L Quality VTE Prophylaxis VTE prophylaxis: pharmacologic ordered Hospitalist [facility] Advance Care Plan I have confirmed that the patient's Advanced Care Plan is present, code status is documented, or surrogate decision maker is listed in patient medical record.: Yes Medication Reconciliation I have utilized all available resources to obtain, update and review the patients current medications (includes all prescriptions, OTC, herbals, cannabis, and nutritional supplements).: Yes
[2024-10-12 14:00] VITALS: BP 120/64; PULSE 88; RESP 20; TEMP 36.9; O2SAT 94
[2024-10-12 18:00] VITALS: BP 95/73; PULSE 83; RESP 20; TEMP 36.6; O2SAT 97
[2024-10-12] MEDS: RIVAROXABAN 10 MG TABLET PO (18:31)
[2024-10-12 22:00] VITALS: BP 157/85; PULSE 88; RESP 20; TEMP 37.4; O2SAT 92
[2024-10-13 00:15] VITALS: BP 137/51; PULSE 85; RESP 18; TEMP 37.2; O2SAT 94
[2024-10-13 03:48] VITALS: BP 140/61; PULSE 86; RESP 18; TEMP 37.1; O2SAT 94
[2024-10-13 06:57] LABS: Basophils Percent Auto 0.6 % (0.2-1.2); Eosinophils Absolute Auto 0.3 K/mm3 (0-0.3); Eosinophils Percent Auto 4.9 % (0-4.4); Hematocrit 31.1 % (37.0-47.0); Hemoglobin 10.4 g/dL (12.0-15.0); Immature Granulocyte Absolute 0.02 K/mm3 (0.00-0.031); Immature Granulocyte Percent A 0.3 % (0-0.5); Lymphocytes Absolute Auto 1.21 K/mm3 (0.9-3.2); Lymphocytes Percent Auto 19.6 % (18.3-44.2); Mean Corpuscular HGB Conc 33.4 g/dl (32-36); Mean Corpuscular Hemoglobin 32.9 pg (26-34); Mean Corpuscular Volume 98.4 fl (80-100); Mean Platelet Volume 9.8 fl (7.4-10.4); Monocytes Absolute Auto 0.6 K/mm3 (0.1-0.6); Neutrophils Percent Auto 64.6 % (45.5-73.1); Platelet Count Result 173 k/mm3 (150-375); Red Blood Count 3.16 M/mm3 (4.2-5.4); White Blood Count 6.2 K/mm3 (4.5-10.0)
[2024-10-13 08:00] VITALS: BP 140/57; PULSE 86; RESP 18; TEMP 36.4; O2SAT 92
--- NOTE | 2024-10-13 09:28 | PM.IMPN ---
Progress Note: A&P Assessment and Plan (1) Fracture of femoral neck, right: Qualifiers: Encounter type: initial encounter Fracture type: closed Qualified Code(s): S72.001A - Fracture of unspecified part of neck of right femur, initial encounter for closed fracture Code(s): S72.001A - Fracture of unspecified part of neck of right femur, initial encounter for closed fracture Status: Acute Assessment and Plan: S/P ORIF right hip 10/[address] Krishnamurthy PRN pain control: Celebrex 200mg daily, acetaminophen, tramadol, vicodin, dialaudid prn PRN anti-emetics: Zofran prn PT and OT, discharge pending rehab. - hip/pelvis XR: Possibility of fracture in the right surgical neck cannot be excluded. CT evaluation is advised. Severe right hip osteoarthritic changes. - knee XR, right: Negative right knee radiographs. - lumbar CT: No acute osseous abnormality. Multilevel disc bulges with variable degrees of intervertebral foraminal narrowing. - hip CT: 1. Impacted and mildly comminuted subcapital fracture of the proximal right femur. 2. Moderate to severe right hip osteoarthritis. - orthopedics consulted, Raghu provided the following recs: Orthopedist discussed thinning of verses joint replacement with patient, patient opted in for pending NPO - analgesics p.r.n. - PT/OT eval and treat postoperatively - care coordination for rehab services Time Spent With Patient Time: 37 minutes Subjective Date/time seen: 10/13/24 09:28 Interval history: Feeling well. No new changes. Medically stable. S/P ORIF 10/10. Planning discharge to SNF on Monday per notes Pain controlled Review of Systems Review of Systems: All systems reviewed & are unremarkable except as noted in HPI and below Exam Narrative: General - Awake and alert. No acute distress Eyes - PERRLA, EOM intact ENT - No thrush, No erythema Neck - No noticeable or palpable swelling Lymph Nodes - No lymphadenopathy Cardiovascular - RRR no m/r/g, no JVD Lungs: Clear to auscultation, No wheezing, use of accessory muscles, no crackles or wheezes. Skin - Skin warm and dry, no rashes. Right hip dressing dry and intact Abdomen - Normal bowel sounds, abdomen soft and nontender Extremities - No edema, cyanosis or clubbing Musculoskeletal - 5/5 strength, normal range of motion, no swollen or erythematous joints. Neurological ? Alert and oriented x 2-3, CN 2-12 grossly intact. Judgement questionable Psych: Normal mood and affect, pleasant Objective Data Vital Signs Vital Signs: Vital Signs - 24 hr 10/12/24 10:00 10/12/24 14:00 10/12/24 18:00 Temperature 98.7 F 98.5 F 97.9 F Pulse Rate 82 88 83 Respiratory Rate 16 20 20 Blood Pressure 129/46 L 120/64 95/73 L Pulse Oximetry 94 94 97 Oxygen Delivery 10/12/24 20:00 10/12/24 22:00 10/13/24 00:15 Temperature 99.3 F 99 F Pulse Rate 88 85 Respiratory Rate 20 18 Blood Pressure 157/85 H 137/51 L Pulse Oximetry 92 94 Oxygen Delivery Room Air 10/13/24 03:48 Temperature 98.7 F Pulse Rate 86 Respiratory Rate 18 Blood Pressure 140/61 Pulse Oximetry 94 Oxygen Delivery Intake/Output Intake/Output: Intake & Output 10/10/24 10/11/24 10/12/24 10/13/24 23:59 23:59 23:59 23:59 Intake Total 500 2820 480 200 Balance 500 2820 480 200 Meds/Results Medications: Active Medications Generic Name Dose Route Start Last Admin Trade Name Freq PRN Reason Stop Dose Admin Hydrocodone Bitart/Acetaminophen 1 tab 10/10/24 17:24 Hydrocodone/Acetaminophen (*Crx) 5-325 Mg Tablet PO Q4H PRN Pain Rated 4-6 Hydrocodone Bitart/Acetaminophen 1 tab 10/10/24 17:24 10/12/24 01:38 Hydrocodone/Acetaminophen (*Crx) 7.5-325 Mg Tablet PO 1 tab Q4H PRN Administration Pain Rated 7-10 Celecoxib 200 mg 10/11/24 08:00 10/12/24 10:50 Celecoxib 200 Mg Capsule PO 200 mg DAILY@0800 ANGELA Administration Hydromorphone HCl 1 mg 10/10/24 17:24 Hydromorphone Hcl Inj (*Crx) 1 Mg/Ml Syr IV PUSH Q2H PRN Breakthrough Pain Rated 7-10 or NPO Hydromorphone HCl 0.5 mg 10/10/24 17:24 Hydromorphone Hcl Inj (*Crx) 1 Mg/Ml Syr IV PUSH Q2H PRN Breakthrough Pain Rated 4-6 or NPO Hydroxyzine Pamoate 50 mg 10/10/24 17:24 10/12/24 01:39 Hydroxyzine Pamoate 25 Mg Capsule PO 50 mg Q4H PRN Administration Itching Ibuprofen 800 mg in 200 mls @ 400 mls/hr 10/10/24 17:24 Caldolor 800 Mg/200 Ml IVPB Q6H PRN Breakthrough Pain Rated 1-3 or NPO Loratadine/Pseudoephedrine Sulfate 1 tab 10/11/24 09:00 10/12/24 10:50 Loratadine/Pseudoephedrine (*Crx) 10/240 Mg Tablet Er 24 Hr PO Not Given QAM [facility] Miscellaneous Information 0 each 10/11/24 00:01 Ibandronate 150mg Nonform Next Dose Not Due Til Nov 08 Is It Ok To Hold??? XX 11/10/24 00:00 CLARIFY ANGELA Naloxone HCl 0.1 mg 10/10/24 17:24 Naloxone Hcl 0.4 Mg/Ml Vial IV PUSH Q2M PRN Opiate Reversal Non-Formulary Medication 150 mg 10/11/24 09:00 Ibandronate PO 11/10/24 08:59 MONTHLY [facility] Ondansetron HCl 4 mg 10/10/24 17:24 Ondansetron Inj 4 Mg/2 Ml Vial IV PUSH Q4H PRN Nausea And Vomiting Polyethylene Glycol 17 gm 10/11/24 09:00 10/12/24 10:51 Polyethylene Glycol 3350 17 Gm Powd.Pack PO 17 gm QAM [facility] Administration Rivaroxaban 10 mg 10/10/24 17:24 10/12/24 18:31 Rivaroxaban 10 Mg Tablet PO 10 mg DAILY@17 ANGELA Administration Senna/Docusate Sodium 2 tab 10/10/24 17:24 10/12/24 18:31 Senna/Docusate Sodium Tablet PO 2 tab BID ANGELA Administration Tramadol HCl 50 mg 10/10/24 17:24 10/10/24 21:15 Tramadol Hcl (*Crx) 50 Mg Tablet PO 50 mg Q4H PRN Administration Pain Rated 1-3 Radiology Results: ITS Impressions Hip/Pelvis X-Ray 10/10/24 10:47 IMPRESSION: Possibility of fracture in the right surgical neck cannot be excluded. CT evaluation is advised. Severe right hip osteoarthritic changes. Knee X-Ray 10/10/24 10:50 IMPRESSION: 1. Negative right knee radiographs. Lumbar Spine CT 10/10/24 10:51 IMPRESSION: No acute osseous abnormality. Multilevel disc bulges with variable degrees of intervertebral foraminal narrowing. Hip CT 10/10/24 11:19 IMPRESSION: 1. Impacted and mildly comminuted subcapital fracture of the proximal right femur. 2. Moderate to severe right hip osteoarthritis. Intraoperative X-Ray 10/10/24 16:47 IMPRESSION: Fluoroscopy used during Right hip pinning with 3 lag screws. Labs Labs: Laboratory Results - last 24 hr 10/13/24 06:03 WBC 6.2 RBC 3.16 L Hgb 10.4 L Hct 31.1 L MCV 98.4 MCH 32.9 MCHC 33.4 RDW 13.0 Plt Count 173 MPV 9.8 Immature Gran % (Auto) 0.3 Neut % (Auto) 64.6 Lymph % (Auto) 19.6 [place] % (Auto) 10.0 H Eos % (Auto) 4.9 H Baso % (Auto) 0.6 Lymph # (Auto) 1.21 [place] # (Auto) 0.6 Eos # (Auto) 0.3 Baso # (Auto) 0.0 Abs Immat Gran (auto) 0.02 Absolute Neuts (auto) 4.0 Absolute Nucleated RBC 0.000 Nucleated RBC % 0.0 Quality VTE Prophylaxis VTE prophylaxis: pharmacologic ordered Hospitalist [facility] Advance Care Plan I have confirmed that the patient's Advanced Care Plan is present, code status is documented, or surrogate decision maker is listed in patient medical record.: Yes Medication Reconciliation I have utilized all available resources to obtain, update and review the patients current medications (includes all prescriptions, OTC, herbals, cannabis, and nutritional supplements).: Yes
[2024-10-13] MEDS: CELECOXIB 200 MG CAPSULE PO (10:50)
[2024-10-13 12:00] VITALS: BP 119/66; PULSE 81; RESP 18; TEMP 36.6; O2SAT 95
[2024-10-13 16:00] VITALS: BP 139/68; PULSE 84; RESP 20; TEMP 36.9; O2SAT 96
[2024-10-13] MEDS: RIVAROXABAN 10 MG TABLET PO (18:29)
[2024-10-13 20:00] VITALS: BP 124/53; PULSE 89; RESP 20; TEMP 36.8; O2SAT 94
[2024-10-14] VITALS: BP 142/65; PULSE 80; RESP 20; TEMP 36.6; O2SAT 100
[2024-10-14 04:00] VITALS: BP 143/67; PULSE 79; RESP 20; TEMP 36.7; O2SAT 92
--- NOTE | 2024-10-14 07:26 | PM.PNORT ---
Progress Note: A&P Assessment and Plan (1) Fracture of femoral neck, right: Qualifiers: Encounter type: initial encounter Fracture type: closed Qualified Code(s): S72.001A - Fracture of unspecified part of neck of right femur, initial encounter for closed fracture Code(s): S72.001A - Fracture of unspecified part of neck of right femur, initial encounter for closed fracture Status: Acute Assessment and Plan: Progressing slowly. Awaiting placement. Subjective Subjective Date/Time Seen: 10/14/24 07:26 Post Op day: 3 Principal diagnosis: Femoral Neck Fracture, RIGHT Review of Systems Musculoskeletal: Musculoskeletal: Reports arthralgias, Reports joint swelling and Reports stiffness Exam Narrative: Wiggles toes. NVI Dressing intact Objective Data Vital Signs Vital Signs: Vital Signs - 24 hr 10/13/24 08:00 10/13/24 12:00 10/13/24 16:00 Temperature 97.5 F L 97.8 F 98.4 F Pulse Rate 86 81 84 Respiratory Rate 18 18 20 Blood Pressure 140/57 L 119/66 139/68 Pulse Oximetry 92 95 96 Oxygen Delivery 10/13/24 20:00 10/13/24 20:00 10/14/24 00:00 Temperature 98.2 F 97.9 F Pulse Rate 89 80 Respiratory Rate 20 20 Blood Pressure 124/53 L 142/65 H Pulse Oximetry 94 100 Oxygen Delivery Room Air 10/14/24 04:00 Temperature 98.1 F Pulse Rate 79 Respiratory Rate 20 Blood Pressure 143/67 H Pulse Oximetry 92 Oxygen Delivery Intake/Output Intake/Output: Intake & Output 10/11/24 10/12/24 10/13/24 10/14/24 23:59 23:59 23:59 23:59 Intake Total 2820 480 938 Balance 2820 480 938 Meds/Results Medications: Active Medications Generic Name Dose Route Start Last Admin Trade Name Freq PRN Reason Stop Dose Admin Acetaminophen 1,000 mg 10/13/24 09:33 Acetaminophen 500 Mg Tablet PO Q6H PRN Mild to moderate pain or fever Hydrocodone Bitart/Acetaminophen 1 tab 10/10/24 17:24 10/12/24 01:38 Hydrocodone/Acetaminophen (*Crx) 7.5-325 Mg Tablet PO 1 tab Q4H PRN Administration Pain Rated 7-10 Celecoxib 200 mg 10/11/24 08:00 10/13/24 10:50 Celecoxib 200 Mg Capsule PO 200 mg DAILY@0800 ANGELA Administration Hydromorphone HCl 0.5 mg 10/13/24 09:34 Hydromorphone Hcl Inj (*Crx) 1 Mg/Ml Syr IV PUSH Q2H PRN Breakthrough Pain Rated 7-10 or NPO Hydromorphone HCl 0.2 mg 10/13/24 09:34 Hydromorphone Hcl Inj (*Crx) 1 Mg/Ml Syr IV PUSH Q2H PRN Breakthrough Pain Rated 4-6 or NPO Hydroxyzine Pamoate 50 mg 10/10/24 17:24 10/12/24 01:39 Hydroxyzine Pamoate 25 Mg Capsule PO 50 mg Q4H PRN Administration Itching Ibuprofen 800 mg in 200 mls @ 400 mls/hr 10/10/24 17:24 Caldolor 800 Mg/200 Ml IVPB Q6H PRN Breakthrough Pain Rated 1-3 or NPO Loratadine/Pseudoephedrine Sulfate 1 tab 10/11/24 09:00 10/13/24 10:50 Loratadine/Pseudoephedrine (*Crx) 10/240 Mg Tablet Er 24 Hr PO Not Given QAM [facility] Miscellaneous Information 0 each 10/11/24 00:01 Ibandronate 150mg Nonform Next Dose Not Due Til Nov 08 Is It Ok To Hold??? XX 11/10/24 00:00 CLARIFY [facility] Naloxone HCl 0.1 mg 10/10/24 17:24 Naloxone Hcl 0.4 Mg/Ml Vial IV PUSH Q2M PRN Opiate Reversal Non-Formulary Medication 150 mg 10/11/24 09:00 Ibandronate PO 11/10/24 08:59 MONTHLY [facility] Ondansetron HCl 4 mg 10/10/24 17:24 Ondansetron Inj 4 Mg/2 Ml Vial IV PUSH Q4H PRN Nausea And Vomiting Polyethylene Glycol 17 gm 10/11/24 09:00 10/13/24 10:50 Polyethylene Glycol 3350 17 Gm Powd.Pack PO Not Given QAM [facility] Rivaroxaban 10 mg 10/10/24 17:24 10/13/24 18:29 Rivaroxaban 10 Mg Tablet PO 10 mg DAILY@17 [facility] Administration Senna/Docusate Sodium 2 tab 10/10/24 17:24 10/13/24 18:21 Senna/Docusate Sodium Tablet PO Not Given BID ANGELA Tramadol HCl 50 mg 10/10/24 17:24 10/10/24 21:15 Tramadol Hcl (*Crx) 50 Mg Tablet PO 50 mg Q4H PRN Administration Pain Rated 1-3 Radiology Results: ITS Impressions Hip/Pelvis X-Ray 10/10/24 10:47 IMPRESSION: Possibility of fracture in the right surgical neck cannot be excluded. CT evaluation is advised. Severe right hip osteoarthritic changes. Knee X-Ray 10/10/24 10:50 IMPRESSION: 1. Negative right knee radiographs. Lumbar Spine CT 10/10/24 10:51 IMPRESSION: No acute osseous abnormality. Multilevel disc bulges with variable degrees of intervertebral foraminal narrowing. Hip CT 10/10/24 11:19 IMPRESSION: 1. Impacted and mildly comminuted subcapital fracture of the proximal right femur. 2. Moderate to severe right hip osteoarthritis. Intraoperative X-Ray 10/10/24 16:47 IMPRESSION: Fluoroscopy used during Right hip pinning with 3 lag screws.
[2024-10-14 07:41] LABS: Basophils Absolute Auto 0.1 K/mm3 (0.0-0.1); Basophils Percent Auto 1.1 % (0.2-1.2); Eosinophils Absolute Auto 0.4 K/mm3 (0-0.3); Eosinophils Percent Auto 5.7 % (0-4.4); Hematocrit 31.4 % (37.0-47.0); Hemoglobin 10.4 g/dL (12.0-15.0); Immature Granulocyte Absolute 0.02 K/mm3 (0.00-0.031); Immature Granulocyte Percent A 0.3 % (0-0.5); Lymphocytes Absolute Auto 1.57 K/mm3 (0.9-3.2); Lymphocytes Percent Auto 24.8 % (18.3-44.2); Mean Corpuscular HGB Conc 33.1 g/dl (32-36); Mean Corpuscular Volume 96.6 fl (80-100); Monocytes Absolute Auto 0.7 K/mm3 (0.1-0.6); Monocytes Percent Auto 11.6 % (2.6-8.5); Neutrophils Absolute Auto 3.6 K/mm3 (1.3-6.7); Neutrophils Percent Auto 56.5 % (45.5-73.1); Platelet Count Result 205 k/mm3 (150-375); Red Blood Count 3.25 M/mm3 (4.2-5.4); White Blood Count 6.3 K/mm3 (4.5-10.0)
[2024-10-14 08:00] VITALS: BP 154/65; PULSE 82; RESP 18; TEMP 36.7; O2SAT 92
[2024-10-14] MEDS: SENNA/DOCUSATE SODIUM TABLET 2 TAB PO (09:38)
[2024-10-14] MEDS: CELECOXIB 200 MG CAPSULE PO (09:38)
[2024-10-14] MEDS: LORATADINE/PSEUDOEPHEDRINE (*CRX) 10/240 MG TABLET ER 24 HR 1 TAB PO (09:38)
--- NOTE | 2024-10-14 11:56 | PM.DS ---
DS: Admitting Diagnosis Discharge Date 10/14/24 Admitting Diagnosis Fracture of right femoral neck DS: Discharge Diagnosis Discharge Diagnosis (1) Fracture of femoral neck, right: Qualifiers: Encounter type: initial encounter Fracture type: closed Qualified Code(s): S72.001A - Fracture of unspecified part of neck of right femur, initial encounter for closed fracture Code(s): S72.001A - Fracture of unspecified part of neck of right femur, initial encounter for closed fracture Status: Acute Assessment and Plan: S/P ORIF right hip 10/[address] Krishnamurthy PRN pain control: Celebrex 200mg daily, acetaminophen, tramadol, vicodin, dialaudid prn PRN anti-emetics: Zofran prn PT and OT, discharge pending rehab. - hip/pelvis XR: Possibility of fracture in the right surgical neck cannot be excluded. CT evaluation is advised. Severe right hip osteoarthritic changes. - knee XR, right: Negative right knee radiographs. - lumbar CT: No acute osseous abnormality. Multilevel disc bulges with variable degrees of intervertebral foraminal narrowing. - hip CT: 1. Impacted and mildly comminuted subcapital fracture of the proximal right femur. 2. Moderate to severe right hip osteoarthritis. - orthopedics consulted, Raghu provided the following recs: Orthopedist discussed thinning of verses joint replacement with patient, patient opted in for pending NPO - analgesics p.r.n. - PT/OT eval and treat postoperatively - care coordination for rehab services 10/14/24: SNF placement is complete. Pt is stable for discharge at this time after confirming discharge details with Dr. Krishnamurthy. DS: Summary Hospital Course Reason for hospitalization: Right Femoral neck Fracture Hospital Course: This 78 year old female patient presented here on 10/10/24 here from home via EMS for further evaluation of right groin and right knee pain s/p ground level fall at home. The patient reports that she was outside and slipped on ice. Patient is unsure what she fell onto (right side vs buttocks) but believes she fell onto her buttocks. She was brought to the ER for evaluation and it was found that she had a right femoral neck fracture and underwent pinning by Dr. Krishnamurthy on 10/10/24. Her post-operative course has been favorable without increased pain or deficit. She has participated well with PT and is ready for discharge today to SNF. Status at Discharge Cognitive/behavioral status at discharge: At baseline Functional status at discharge: uses cane/walker Overall status at discharge: patient is progressing back to baseline Time Spent with Patient Time attestation: Total time spent providing and/or coordinating discharge services: Time spent: Greater than 30 minutes Specific discharge activities: Follow up, dressings, and medications Exam Narrative: General - Awake and alert. No acute distress Eyes - PERRLA, EOM intact ENT - No thrush, No erythema Neck - No noticeable or palpable swelling Lymph Nodes - No lymphadenopathy Cardiovascular - RRR no m/r/g, no JVD Lungs: Clear to auscultation, No wheezing, use of accessory muscles, no crackles or wheezes. Skin - Skin warm and dry, no rashes. Right hip dressing dry and intact Abdomen - Normal bowel sounds, abdomen soft and nontender Extremities - No edema, cyanosis or clubbing Musculoskeletal - 5/5 strength, normal range of motion, no swollen or erythematous joints. Neurological ? Alert and oriented x 2-3, CN 2-12 grossly intact. Judgement questionable Psych: Normal mood and affect, pleasant DS: Data Data Completed and Pending Completed studies during hospitalization: ITS Impressions Hip/Pelvis X-Ray 10/10/24 10:47 IMPRESSION: Possibility of fracture in the right surgical neck cannot be excluded. CT evaluation is advised. Severe right hip osteoarthritic changes. Knee X-Ray 10/10/24 10:50 IMPRESSION: 1. Negative right knee radiographs. Lumbar Spine CT 10/10/24 10:51 IMPRESSION: No acute osseous abnormality. Multilevel disc bulges with variable degrees of intervertebral foraminal narrowing. Hip CT 10/10/24 11:19 IMPRESSION: 1. Impacted and mildly comminuted subcapital fracture of the proximal right femur. 2. Moderate to severe right hip osteoarthritis. Intraoperative X-Ray 10/10/24 16:47 IMPRESSION: Fluoroscopy used during Right hip pinning with 3 lag screws. Labs on day of discharge: Labs from last 24 hours 10/14/24 07:16 WBC 6.3 RBC 3.25 L Hgb 10.4 L Hct 31.4 L MCV 96.6 MCH 32.0 MCHC 33.1 RDW 13.0 Plt Count 205 MPV 9.0 Immature Gran % (Auto) 0.3 Neut % (Auto) 56.5 Lymph % (Auto) 24.8 [place] % (Auto) 11.6 H Eos % (Auto) 5.7 H Baso % (Auto) 1.1 Lymph # (Auto) 1.57 [place] # (Auto) 0.7 H Eos # (Auto) 0.4 H Baso # (Auto) 0.1 Abs Immat Gran (auto) 0.02 Absolute Neuts (auto) 3.6 Absolute Nucleated RBC 0.000 Nucleated RBC % 0.0 Discharge Plan Discharge Attending physician on discharge: Tammie Erickson Consulting providers: Jose Krishnamurthy Discharging Clinician: Tammie Erickson Anticipated Discharge Date/Time: 10/14/24 12:08 Patient Disposition: SNF Activity: as tolerated and follow weight bearing status Diet: as tolerated and regular Wound Care Instructions: other - see discharge instructions Discharge Instructions: Weight bearing RLE as tolerated with walker Change dressing in 7 days, applying Acticoat/Silver impregnated dressing. Pt to follow up with Dr. Krishnamurthy by calling office for follow up appointment. Medications as ordered. Patient Instructions: Rivaroxaban (By mouth) Patient Language: Scottish Stand Alone Forms: [facility] Discharge Follow-up/Referrals: Jose Krishnamurthy MD [Physician] - Call for Appointment (Post/op ORIF Right femoral neck from 10/10/24.) Mitchell Brown MD [Primary Care Provider] - Discharge Medications: New celecoxib [Celebrex] 200 mg Capsule 200 mg PO DAILY@0800 Qty: 60 0RF acetaminophen 500 mg Tablet 1,000 mg PO Q6H PRN (Reason: Mild to moderate pain or fever) Qty: 60 0RF Xarelto 10 mg Tablet 10 mg PO DAILY@17 Qty: 30 0RF Continued cetirizine-pseudoephedrine [Zyrtec-D] 5-120 mg tablet extended release 12 hr 1 tablet PO Q12H Qty: 60 5RF ibandronate 150 mg tablet 150 mg PO MONTHLY Qty: 3 3RF Date of admission: 10/10/24 13:29 Primary Care Provider: Mitchell Brown Admitting Provider: Russell Loza Attending physician on admission: Tammie Erickson Condition: Stable Quality VTE Prophylaxis VTE prophylaxis: pharmacologic ordered Hospitalist MIPS Heart Failure (Exclusion) Patient has history of Heart Transplant or Left Ventricular Assistive Device?: No IF YES, STOP HERE Heart Failure (Qualifier) Patient has current or prior documentation of LVEF less than or equal to 40%, or mod/servere depressed LVSF?: No IF NO, STOP HERE
[2024-10-14 12:00] VITALS: BP 119/67; PULSE 87; RESP 18; TEMP 36.8; O2SAT 95
[2024-10-14 12:53] LABS: SARS-CoV-2 RNA PCR Negative (Negative)
--- OUTSIDE RECORDS SUMMARY | 2024-10-17 02:38 | XMS_ITS | Continuity of Care Document ---
Author Organization [employer] [facility] Address [address] [place] [address] Dr Granado [address] [place] [address] Phone Care Team Providers Care Director Of Vocational Guidance Name Role Phone Odessa OD, Vanessa Unavailable Unavailable Allergies, Adverse Reactions, Alerts Substance Reaction Status Criticality No Known Allergies Active No Inform ation Medications Medication Instructions Dosage Effective Dates (start - stop) Status Comments Zyrtec 10 mg capsule take [address] e every day 1 - Active Procedures Procedure Date Charge For A No Show Fundus Photography W/ Report Office/outpatient Visit, Est No Charge Refraction Post-op Follow-up Visit No Charge Refraction After Cataract Laser Surgery No Charge Refraction Fundus Photography W/ Report Eye Exam & Treatment No Charge Refraction Fundus Photography W/ Report Office/outpatient Visit, Est No Charge Refraction Fundus Photography W/ Report Eye Exam, New Patient Eye Exam & Treatment Office/outpatient Visit, Est Post-op Follow-up Visit Post-op Follow-up Visit Post-op Follow-up Visit Remove Cataract, Insert Lens IOLMaster Eye Exam & Treatment Post-op Follow-up Visit After Cataract Laser Surgery Post-op Follow-up Visit Post-op Follow-up Visit Post-op Follow-up Visit Reposition Intraocular Lens Eye Exam & Treatment Post-op Follow-up Visit Post-op Follow-up Visit Post-op Follow-up Visit Post-op Follow-up Visit Remove Cataract, Insert Lens IOLMaster Office/outpatient Visit, Est Eye Exam, New Patient Refraction Advance Directives Directive Yes / No Effective Date File Name No Information Encounters Encounter Description Practice Location Reason(s) For Visit Diagnoses Date Provider Providers Copied on Encounter [facility], [address], [place], [place], [address], tel:[phone] SEC Chavo LUCIO Professional No Information 3 Odessa OD Vanessa. [address], [address], [place], [place], [address], [place]. tel:[phone] Referring Provider: Leif Hay, [address], [place], [address] . tel:[phone] Office/outpa tient Visit, [facility], [address], [place], [place], [address], [place] tel:[phone] SEC Jewel Reynaga Complete Exam (chief complaint) Other vitreous opacities, left eyePresence of intraocular lensChorioret inal scars after surgery for detachment, bilateralBand keratopathy, bilateral 1 Jayjay Yadav. [address], [address], [place], [place], [address], [place]. tel:[phone] Aditya Guerrero MD.Special ist: Aditya Guerrero MD, [address] [facility] [address], [place], [address] . tel:[phone] erring Provider: Leif Hay, [facility] [address], [place], [address] . tel:[phone] [facility], [address] [place], [place] [address], [place], [place], [address], [place] tel:[phone] [place] Professional 2 wk po yag PC (06/26/19) (chief complaint) Encounter for follow-up Oct-2 3-201 9 Debbie Green. [address] [facility], 6th Floor, [place], [address], [place]. tel:[phone] Referring Provider: Leif Hay, [facility] [address], [place], [address] . tel:[phone] [facility], [address] [place], [place] [address] [address], [place], [place], [address], [place] tel:[phone] SEC [place] Professional yag pc evaluation OS (chief complaint) Other secondary cataract, left eyePeripheral scars of retina, bilateralOld retinal detachment of both eyesPresence of intraocular lens Oct-0 8201 9 Jayjay Yadav. [facility] [address], [address], [place], [place], [address], [place]. tel:[phone] Aditya Guerrero MD.Referri ng Provider: Leif Hay, [facility] [address], [place], [address] . tel:[phone] [facility], [facility] [address], [place], [place], [address], [place] tel:[phone] SEC [place] Professional No Information Sep-2 0-201 9 Jayjay Yadav. [facility] [address], [address], [place], [place], [address], [place]. tel:[phone] Specialist : Aditya Guerrero MD, [address] [facility] [address], [place], [address] . tel:[phone] Office/outpa tient Visit, [facility], [facility] [address], [place], [place], [address], [place] tel:[phone] SEC Toone N Lindbergh PCF check (chief complaint) Other secondary cataract, left eyePresence of intraocular lensOther chorioretinal scars, bilateralOld retinal detachment of both eyes 201 7 Jayjay Yadav. [facility] [address], [address], [place], [place], [address], [place]. tel:[phone] Referring Provider: Leif Hay, [facility] [address], [place], [address] . tel:[phone] [facility], [facility] [address], [place], [place], [address], [place] tel:[phone] SEC Jewel N Lindbergh Blurry/decr eased vision (chief complaint) No Information Sep-0 -201 7 Jayjay Yadav. [facility] [address], [address], [place], [place], [address], [place]. tel:[phone] Referring Provider: Leif Hay, [facility] [address], [place], [address] . tel:[phone] [facility], [facility] [address], [place], [place], [address], [place] [phone] SEC Jewel N Lindbergh No Information Oct-2 8-201 0 Flako King. [address] [facility], [address], [place], [place], [address], [place]. tel:[phone] Office/outpa tient Visit, [facility], [facility] [address], [place], [place], [address], [place] tel:[phone] SEC Jewel N Lindbergh No Information Sep-2 5-200 9 Jayjay Yadav. [facility] [address], [address], [place], [place], [address], [place]. tel:[phone] [facility], [address], [place], [place], [address], [place] tel:[phone] SEC Toone N Lindbergh No Information 9 Jayjay Yadav. [address], [address], [place], [place], [address], [place]. tel:[phone] [facility], [address], [place], [place], [address], [place] tel:[phone] SEC Jewel N Lindbergh No Information 6 9 Jayjay Yadav. [address], [address], [place], [place], [address], [place]. tel:[phone] Referring Provider: Leif Hay, [facility] [address], [place], [address] . tel:[phone] [facility], [address], [place], [place], [address], [place] tel:[phone] SEC Toone N Lindbergh No Information 9 Jayjay Yadav. [address], [address], [place], [place], [address], [place]. tel:[phone] Referring Provider: Leif Hay, [address], [place], [address] . tel:[phone] [facility], [address], [place], [place], [address], [place] tel:[phone] [facility] [place] No Information 9 Jayjay Leif. [address], [address], [place], [place], [address], [place]. tel:[phone] [facility], [address], [place], [place], [address], [place] tel:[phone] SEC Jewel N Chavabergenoc No Information May-2 1-200 9 Jayjay Yadav. [address], [address], [place], [place], [address], [place]. tel:[phone] Referring Provider: Leif Jayjay Hay, [address], [place], [address] . tel:[phone] [facility], [address], [place], [place], [address], [place] tel:[phone] SEC Toone Chito Reynaga No Information Nov-2 4-200 9 Jayjay Yadav. [address], [address], [place], [place], [address], [place]. tel:[phone] [facility], [address] [place] [address] [address], [place], [place], [address], [place] tel:[phone] [facility] No Information Mar-0 6-200 8 Doisy Edward. [address], [place], [place], [facility], . tel:[phone] [facility], [address], [place], [place], [address], [place] tel:[phone] [facility] No Information Feb-2 0-200 8 Doierica Edyesi. [address] , [address], [place], [facility], [place]. tel:[phone] [facility], [address] [place], [place] [address]st [address], [place], [place], [address], [place] tel:[phone] [facility] No Information Feb-0 6-200 8 Doisy Edyesi. [address] , [address], [place], [facility], [place]. tel:[phone] [facility], [address], [place], [place], [address], [place] tel:[phone] [facility] No Information 5200 8 Doisy Edward. [address] , [address], [place], [address], [place]. tel:[phone] [facility], [address], [place], [place], [address], [place] tel:[phone] [facility] No Information 8-200 8 Doisy Edward. [address] , [address], [place], [address], [place]. tel:[phone] [facility], [address], [place], [place], [address], [place] tel:[phone] [facility] No Information 7 8 Doisy Edyesi. [address] , [address], [place], [facility], [place]. tel:[phone] [facility], [address], [place], [place], [address], [place] tel:[phone] [facility] Chito Reynaga No Information 0 8 Sarah Yang. [address] [facility], [address], [place], [address], [place]. tel:[phone] [facility], [address], [place], [place], [address], [place] tel:[phone] [facility] No Information 6200 7 Doisy Edward. [address] , [address], [place], [address], [place]. tel:[phone] [facility], [address], [place], [place], [address], [place] tel:[phone] [facility] No Information Oct-1 1-200 7 Rao OD Erickson. [address] , [address], [place], [facility], [place]. tel:[phone] [facility], [address] [place] [address] [address], [place], [place], [address], tel:[phone] [facility] No Information Oct-0 4-200 7 Rao OD Erickson. [address], [address], [place], [facility], [place]. tel:[phone] Referring Provider: Antony Hay, [address], [place], [facility]. tel:[phone] [facility], [address] [place] [address] [address], [place], [place], [address], tel:[phone] [facility] No Information Sep-2 8-200 7 Chase Hardy. [facility] [address], [address], [place], [facility], [place]. tel:[phone] Referring Provider: Erickson Rao OD A, [address], [place], [facility]. tel:[phone] [facility], [address] [place] [address] [address], [place], [place], [address], [place] tel:[phone] [facility] No Information Sep-2 7-200 7 Chase Hardy. [address], [address], [place], [facility], [place]. tel:[phone] [facility], [address] [place] [address] [address], [place], [place], [address], [place] tel:[phone] [facility] No Information Sep-1 8-200 7 Chase Hardy. [address], [address], [place], [facility], [place]. tel:[phone] Referring Provider: Antony Hay, [address], [place], [address]. tel:[phone] Office/outpa tient Visit, Est [facility], [address] [place] [address] [address], [place], [place], [address], tel:[phone] [place] [address] No Information 200 7 Doisy Edward. [facility] [address], [place], [address], [place]. tel:[phone] Referring Provider: Erickson Rao OD A, [address] [place], [place] [address]ate [address], [place], [address]. tel:[phone] [facility], [address] [place] [address] [address], [place], [place], [address], tel:[phone] [facility] No Information 7 Rao OD Erickson. [address] [place] [address] , [address], [place], [address], [place]. tel:[phone] Family History Family Member Type Diagnosis Age At Onset No Information Payers Payer name Insurance type Covered democrat ID Authoriza tion(s) No Information Social History Type Description Quantity Date Captured Comments Sex Female Smoking Status No Information Chief Complaint And Reason For Visit No Information Reason For Referral Reason For Referral No Information Plan Of Treatment Date Type Action Status Patient Education Floaters and Flashes: C are Instructio~ completed Patient Education Learning About YAG Lase r Capsulotomy completed History Of Present Illness Encounter Date Complaint History Of Prese nt Illness Complete Exam The 75 year old female presents for evaluation of Complete Exam in the right eye and left eye. Hx of PCIOL OU, Yag OU, PVD OS, Retinal Detachment OU, Peripheral Vitreous Syneresis OD, Drusen OD, and Macular Scar OD. Pt states OS has been blurry and she notices a flash of light if she turns her OS to the right. Complaining of floater in her vision OS. Pt states she gets glasses [facility]. 2 wk po yag PC (06/26/19) The 73 year old female presents for evaluation of 2 wk po yag PC (06/26/19) in the left eye. Pt reports good comfort and vision OS since Yag PC. Pt reports seeing something cover her vision OS when she moves her eye, but attributes that to her retina. yag pc evaluation OS The 73 year old female presents for a YAG PC OS evaluation. Patient is pseudo ou with yag cap OD. Patient c/o glare around lights driving at night for a long time. Patient is having a hard time reading small print and a hard time seeing road signs. Patient states she has been waiting a long time to have this done. Patient has hx of RD ou. PCF check The 71 year old female presents for a 10 month PCF os check. Patient is pseudo ou and has hx of RD ou. Patient c/o a blur spot in OS vision. Patient states she has multiple pairs of glasses and only brought one pair today. Blurry/decreased vision The 70 y ear old female presents for a complete exam in the right and left eye ref by Dr. Guerrero for PCO OS. Hx of PCIOL OU, Retinal detachment OU, s/p Scleral buckle OU, Macular scar OD, Drusen OD, peripheral vitreous Syneresis OD, PVD OS. Pt states within the past 1-2 years she has noticed a film over OS, decreased vision, avoids driving at night, and is bothered by glare from bright lights. Pt denies any pain or discomfort. Functional Status Date Functional Assessmen t No Information Instructions Date Instruction Additional Infor ryan Impression/Plan Impression/Plan Related to Encou nter for follow-up Impression/Plan Impression/Plan - PC F OS discussed along with signs/symptoms of progression explained and YAG PC for treatment. Pt aware treatment is not indicated at this time, but rec returning sooner if vision worsens Follow up - 1 yr complete exam Other secondary gladys ract, left eye - Surgery not indicated now. Related to Other secondary cataract, left eye Impression/Plan - PC F discussed along with signs/symptoms of progression explained and YAG PC for treatment. Pt aware treatment is not indicated at this time, but rec returning sooner if vision worsens. Rec keeping regular exams scheduled with Dr. Guerrero. Return to the office in 6 months or sooner if vision worsens. Follow up - 6 months PCF check Assessments Type Assessment Date No Information Patient Care Teams Name Effective Dates (start - stop) Status Members No Information
--- OUTSIDE RECORDS SUMMARY | 2024-10-17 02:38 | XMS_ITS | Patient Health Summary ---
Author Organization [facility] Address [address] [place] [address] Care Team Providers Care Controls Project Engineer Name Role Phone Mitchell Brown MD Primary Care Provider [phone] Note from [facility],non-owned Affiliates and Associated Physician Practices is amultiple site organization consisting of ambulatory clinics and hospital sitesin [place], [place], [place] and [place]. This disclosure is being madepursuant to the Care Everywhere program and may not contain all information available regarding this patient. Last updated 18.[facility] Immunizations * INFLUENZA VACCINE, HIGH-DOSE, QUADR. (FLUZONE HIGH-DOSE QUADRIVALENT; 65Y+), 0.7 ML (HD-IIV4)(Given 06/16/2019, 06/10/2016) Social History Tobacco Use Types Packs/Day Years Used Date Smoking Tobacco: Never Assessed Sex and Gender Information Value Date Recorded Sex Assigned at Not on file Gender Identity Not on file Sexual Orientation Not on file Care Teams Controls Project Engineer Relationship Specialty Start Date End Date Mitchell Brown MD [address] [place] [address] PCP - General Family Medicine 06/10/16
--- OUTSIDE RECORDS SUMMARY | 2024-10-17 02:38 | XMS_ITS | Clinical Summary ---
Author Organization [facility] [address] Address [address] [place] [address] Care Team Providers Care Family Advocate Name Role Phone Mitchell Brown MD Primary Care Provider Allergies No known active allergies Medications gabapentin (NEURONTIN) 300 mg capsule Take 300 mg by mouth nightly as needed 02/02/2022 Active Active Problems No known active problems Social History Tobacco Use Types Packs/Day Years Used Date Smoking Tobacco: Never Smokeless Tobacco: Never Personal Safety Answer Date Recorded Getting School Help Needed Not on file 12/08 Comments Unknown Sex and Gender Information Value Date Recorded Sex Assigned at Not on file 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 Gender Identity Not on file Sexual Orientation Not on file Obstetrics History Last Filed Vital Signs Vital Sign Reading Time Taken Comments Blood Pressure 135/65 02/13/2022 5:51 PM CDT Pulse 90 02/13/2022 5:51 PM CDT Temperature 36.8 ??C (98.3 ??F) 02/13/2022 5:51 PM CD T Respiratory Rate 20 02/13/2022 5:51 PM CDT Oxygen Saturation 97% 02/13/2022 5:51 PM CDT Inhaled Oxygen Concentration - - Weight 45.8 kg (101 lb) 02/13/2022 5:51 PM CDT Height 170.2 cm (5' 7 ) 02/13/2022 5:51 PM CDT Body Mass Index 15.82 02/13/2022 5:51 PM CDT Plan of Treatment Health Maintenance Due Date Last Done Comments Depression Screening 1945 Fall Risk Assessment 1945 Osteoporosis Screening-Bone Density Scan 1945 DTaP/Tdap/Td Vaccine (1 - Tdap) 11/22/1954 Hepatitis B Screening 11/22/1961 Zoster Vaccine (1 of 2) 11/22/1993 Well Visit 65+ 11/22/2008 Covid-19 Vaccine (4 2023-2 5 season) 2024 10/08/2021, 12/24/2020, 11/25/2020 Influenza Vaccine (#1) 2024 , 06/16/2019, 06/06/2018, Additional history exists Pneumococcal vaccine 65+ Completed 10/08/2021, 04/2019 Insurance [employer] MEDICARE PPO Care Teams Family Advocate Relationship Specialty Start Date End Date Mitchell Brown MD [address] [place] [address] PCP - General Family Medicine 01/31/22
--- OUTSIDE RECORDS SUMMARY | 2024-10-17 02:38 | XMS_ITS | Referral Summary ---
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
--- OUTSIDE RECORDS SUMMARY | 2024-10-17 02:38 | XMS_ITS | Referral Summary ---
Author Organization [facility] Address [address] [facility] [place] [address] Care Team Providers Care Display Fabricator Name Role Phone Mitchell Brown MD Primary Care Provider [phone] Source Comments [facility],non-owned Affiliates and Associated Physician Practices is amultiple site organization consisting of ambulatory clinics and hospital sitesin [place], [place] and [place]. This disclosure is being madepursuant to the Care Everywhere program and may not contain all information available regarding this patient. Last updated 18.[facility] Immunizations Name Administration Dates Next Due INFLUENZA VACCINE, HIGH-DOSE , QUADR. (FLUZONE HIGH-DOSE QUADRIVALENT; 65Y+), 0.7 ML (HD-IIV4) 06/16/2019,06/10/2016 Social History Tobacco Use Types Packs/Day Years Used Date Smoking Tobacco: Never Assessed Sex and Gender Information Value Date Recorded Sex Assigned at Not on file Gender Identity Not on file Sexual Orientation Not on file Plan of Treatment Not on file Care Teams Display Fabricator Relationship Specialty Start Date End Date Mitchell Brown MD [address] [place] [address] PCP - General Family Medicine 06/10/16
--- OUTSIDE RECORDS SUMMARY | 2024-10-17 02:38 | XMS_ITS | Clinical Summary ---
Author Organization [facility] Address [address] [facility] [place] [address] Care Team Providers Care Rivet Maker Name Role Phone Mitchell Brown MD Primary Care Provider [phone] Source Comments [facility] katena,non-owned Affiliates and Associated Physician Practices is amultiple site organization consisting of ambulatory clinics and hospital sitesin [place], [place], [place] and [place]. This disclosure is being madepursuant to the Care Everywhere program and may not contain all information available regarding this patient. Last updated 18.[facility]ena Immunizations Name Administration Dates Next Due INFLUENZA VACCINE, HIGH-DOSE , QUADR. (FLUZONE HIGH-DOSE QUADRIVALENT; 65Y+), 0.7 ML (HD-IIV4) 06/16/2019,06/10/2016 Social History Tobacco Use Types Packs/Day Years Used Date Smoking Tobacco: Never Assessed Sex and Gender Information Value Date Recorded Sex Assigned at Not on file Gender Identity Not on file Sexual Orientation Not on file Plan of Treatment Health Maintenance Due Date Last Done Comments BONE DENSITY TESTING 1945 DTAP/TDAP/TD VACCINES (1 - Tdap) 11/22/1962 PNEUMOCOCCAL VACCINE 50+ (1 of 1 - PCV) 11/22/1993 ZOSTER VACCINE (1 of 2) 11/22/1993 Respiratory Syncytial Virus (RSV) Vaccine Pt: or over 60 yrs (1 - 1-dose 75+ series) 11/22/2018 COVID-19 VACCINE ( - 2023-2 5 season) 2024 INFLUENZA VACCINE (#1) 2024 9, 06/10/2016 DEPRESSION SCREENING 09/25/2024 HEPATITIS B VACCINE Aged Out No longe r eligible based on patient's age to complete this topic HIB VACCINE Aged Out No longer eligi ble based on patient's age to complete this topic HPV VACCINE Aged Out No longer eligi ble based on patient's age to complete this topic MENINGOCOCCAL (Group B) VACCINE Aged Out No longer eligible b ased on patient's age to complete this topic MENINGOCOCCAL VACCINE Aged Out No ismael sangeetha eligible based on patient's age to complete this topic Care Teams Rivet Maker Relationship Specialty Start Date End Date Mitchell Brown MD [address] [place] [address] PCP - General Family Medicine 06/10/16
--- OUTSIDE RECORDS SUMMARY | 2024-10-17 04:15 | XMS_ITS | Clinical Summary ---
Author Organization [facility] Address [address] [facility] [place] [address] Care Team Providers Care Test Lab Technician Name Role Phone Mitchell Brown MD Primary Care Provider [phone] Source Comments [facility] CUPS and some sugar,non-owned Affiliates and Associated Physician Practices is amultiple site organization consisting of ambulatory clinics and hospital sitesin [place], [place], [place] and [place]. This disclosure is being madepursuant to the Care Everywhere program and may not contain all information available regarding this patient. Last updated 18.[facility] CU[facility] and some sugar Immunizations Name Administration Dates Next Due INFLUENZA [...] age to complete this topic Care Teams Test Lab Technician Relationship Specialty Start Date End Date Mitchell Brown MD [address] [place] [address] PCP - General Family Medicine 06/10/16
--- OUTSIDE RECORDS SUMMARY | 2024-10-17 04:15 | XMS_ITS | Referral Summary ---
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
--- OUTSIDE RECORDS SUMMARY | 2024-10-17 04:15 | XMS_ITS | Clinical Summary ---
Author Organization [facility] [address] [place] [address] Care Team Providers Care Music Orchestrator Name Role Phone Mitchell Brown MD Primary [...] on file Legal Sex Female 8:16 AM THERAPY DIRECTOR Gender Identity Not on file Sexual Orientation [...] Insurance [employer] MEDICARE PPO Care Teams Music Orchestrator Relationship Specialty Start Date End Date Mitchell Brown MD [address] [place] [address] PCP - General Family Medicine 01/31/22
--- OUTSIDE RECORDS SUMMARY | 2024-10-17 04:15 | XMS_ITS | Referral Summary ---
Author Organization [facility] Address [address] [facility] [place] [address] Care Team Providers Care Assembly Riveter Name Role Phone Mitchell Brown MD Primary Care Provider [phone] Source Comments [facility],non-owned Affiliates and Associated Physician Practices is amultiple site organization consisting of ambulatory clinics and hospital sitesin [place], [place], [place] and [place]. This disclosure is being madepursuant to the Care Everywhere program and may not contain all information available regarding this patient. Last updated 18.[facility] Immunizations Name Administration Dates Next [...] of Treatment Not on file Care Teams Assembly Riveter Relationship Specialty Start Date End Date Mitchell Brown MD [address] [place] [address] PCP - General Family Medicine 06/10/16
--- OUTSIDE RECORDS SUMMARY | 2024-10-17 04:15 | XMS_ITS | Patient Health Summary ---
Author Organization [facility] Address [address] [facility] [place] [address] Care Team Providers Care Unionmelt Operator Name Role Phone Mitchell Brown MD Primary Care Provider [phone] Note from [facility],non-owned Affiliates and Associated Physician Practices is amultiple site organization consisting of ambulatory clinics and hospital sitesin [place], [place], [place] and [place]. This disclosure is being madepursuant to the Care Everywhere program and may not contain all information available regarding this patient. Last updated 18.[facility] Immunizations * INFLUENZA VACCINE, HIGH-DOSE, QUADR. (FLUZONE HIGH-DOSE QUADRIVALENT; 65Y+), 0.7 ML (HD-IIV4)(Given 06/16/2019, 06/10/2016) Social History Tobacco Use Types Packs/Day Years Used Date Smoking Tobacco: Never Assessed Sex and Gender Information Value Date Recorded Sex Assigned at Not on file Gender Identity Not on file Sexual Orientation Not on file Care Teams Unionmelt Operator Relationship Specialty Start Date End Date Mitchell Brown MD [address] [place] [address] PCP - General Family Medicine 06/10/16
--- OUTSIDE RECORDS SUMMARY | 2024-10-17 04:15 | XMS_ITS | Continuity of Care Document ---
Author Organization [facility] Address [address] [place] [address] Dr Granado [address] [place] [address] Phone Care Team Providers Care Drafter Automotive Design Name Role Phone Odessa OD, Vanessa Unavailable [...] Diagnoses Date Provider Providers Copied on Encounter [facility], [address] [address], [place], [place], [address], tel:[phone] SEC Chvao LUCIO Professional No Information 3 Odessa OD Vanessa. [address], [address], [place], [place], [address], [place]. tel:[phone] Referring Provider: Leif Hay, [address], [place], [address] . tel:[phone] Office/outpa tient Visit, [facility], [address] [address], [place], [place], [address], [place] tel:[phone] SEC Jewel Reynaga Complete Exam (chief complaint) Other vitreous opacities, left eyePresence of intraocular lensChorioret inal scars after surgery for detachment, bilateralBand keratopathy, bilateral 1 Jayjay Yadav. [address] [employer], [address], [place], [place], [address], [place]. tel:[phone] Aditya Guerrero MD.Special ist: Aditya Guerrero MD, [address] [facility] [address], [place], [address] . tel:[phone] erring Provider: Leif Hay, [facility] [employer] [address], [place], [address] . tel:[phone] [employer] [facility], [address] [place], [place] [address], [place], [place], [address], [place] tel:[phone] SEC [place] Professional 2 wk po yag PC (06/26/19) (chief complaint) Encounter for follow-up Oct-2 3-[address] [facility], 6th Floor, [place], [address], [place]. tel:[phone] Referring Provider: Leif Hay, [facility] [employer] [address], [place], [address] . tel:[phone] [employer] [facility], [address] [place], [place] [address] [address], [place], [place], [address], [place] tel:[phone] SEC [place] Professional yag pc evaluation OS (chief complaint) Other secondary cataract, left eyePeripheral scars of retina, bilateralOld retinal detachment of both eyesPresence of intraocular lens Oct-0 8201 9 Jayjay Yadav. [facility] [employer], [address], [place], [place], [address], [place]. tel:[phone] Aditya Guerrero MD.Referri ng Provider: Leif Hay, [facility] [employer] [address], [place], [address] . tel:[phone] [employer] [facility], [facility] [employer] [address], [place], [place], [address], [place] tel:[phone] SEC [place] Professional No Information Sep-2 0-201 9 Jayjay Yadav. [facility] [employer], [address], [place], [place], [address], [place]. tel:[phone] Specialist : Aditya Guerrero MD, [address] [facility] [address], [place], [address] . tel:[phone] Office/outpa tient Visit, [facility], [facility] [address], [place], [place], [address], [place] tel:[phone] SEC [place] PCF check (chief complaint) Other secondary cataract, left eyePresence of intraocular lensOther chorioretinal scars, bilateralOld retinal detachment of both eyes 201 7 Jayjay Yadav. [facility] [employer], [address], [place], [place], [address], [place]. tel:[phone] Referring Provider: Leif Hay, [facility] [employer] [address], [place], [address] . tel:[phone] [facility], [facility] [address], [place], [place], [address], [place] tel:[phone] SEC Jewel N [place] Blurry/decr eased vision (chief complaint) No Information Sep-0 -201 7 Jayjay Yadav. [facility] [employer], [address], [place], [place], [address], [place]. tel:[phone] Referring Provider: Leif Hay, [facility] [employer] [address], [place], [address] . tel:[phone] [facility], [facility] [address], [place], [place], [address], [place] [phone] SEC Jewel N [place] No Information Oct-2 8-201 0 Flako King. [address] [facility], [address], [place], [place], [address], [place]. tel:[phone] Office/outpa tient Visit, [facility], [facility] [address], [place], [place], [address], [place] tel:[phone] SEC Jewel N [place] No Information Sep-2 5-200 9 Jayjay Yadav. [facility] [employer], [address], [place], [place], [address], [place]. tel:[phone] [facility], [address], [place], [place], [address], [place] tel:[phone] [place] No Information 9 Jayjay Yadav. [address], [address], [place], [place], [address], [place]. tel:[phone] [facility], [address], [place], [place], [address], [place] tel:[phone] SEC Jewel N [place] No Information 6 9 Jayjay Yadav. [address], [address], [place], [place], [address], [place]. tel:[phone] Referring Provider: Leif Hay, [facility] [address], [place], [address] . tel:[phone] [facility], [address], [place], [place], [address], [place] tel:[phone] SEC [place] No Information 9 Jayjay Yadav. [address], [address], [place], [place], [address], [place]. tel:[phone] Referring Provider: Leif Hay, [address], [place], [address] . tel:[phone] [facility], [address], [place], [place], [address], [place] tel:[phone] [facility] [place] No Information 9 Jayjay Leif. [address], [address], [place], [place], [address], [place]. tel:[phone] [facility], [address], [place], [place], [address], [place] tel:[phone] SEC Jewel N [place] No Information May-2 1-200 9 Jayjay Yadav. [address], [address], [place], [place], [address], [place]. tel:[phone] Referring Provider: Leif Jayjay Hay, [address], [place], [address] . tel:[phone] [facility], [address], [place], [place], [address], [place] tel:[phone] [place] Chito Reynaga No Information Nov-2 4-200 9 Jayjay Yadav. [address], [address], [place], [place], [address], [place]. tel:[phone] [facility], [address] [place] [address] [address], [place], [place], [address], [place] tel:[phone] [facility] No Information Mar-0 6-200 8 Doisy Edward. [address] , [address], [place], [place], [facility], . tel:[phone] [facility], [address], [place], [place], [address], [place] tel:[phone] [facility] No Information Feb-2 0-200 8 Doierica Edyesi. [address] , [address], [place], [facility], [place]. tel:[phone] [facility], [address] [place], [place] [address]st [address], [place], [place], [address], [place] tel:[phone] [facility] No Information Feb-0 6-200 8 Doisy Edyesi. [address] , [address], [place], [facility], [place]. tel:[phone] [facility], [address], [place], [place], [address], [place] tel:[phone] [facility] No Information 5200 8 Doisy Edward. [address] , [address], [place], [address], [place]. tel:[phone] [facility], [address], [place], [place], [address], [place] tel:[phone] [facility] No Information 8-200 8 Doisy Edward. [address] , [address], [place], [address], [place]. tel:[phone] [facility], [address], [place], [place], [address], [place] tel:[phone] [facility] No Information 7 8 Doisy Edyesi. [address] , [address], [place], [facility], [place]. tel:[phone] [facility], [address], [place], [place], [address], [place] tel:[phone] [facility] Chito Reynaga No Information 0 8 Sarah Yang. [address] [facility], [address], [place], [address], [place]. tel:[phone] [facility], [address], [place], [place], [address], [place] tel:[phone] [facility] No Information 6200 7 Doisy Edward. [address] , [address], [place], [address], [place]. tel:[phone] [facility], [address], [place], [place], [address], [place] tel:[phone] [facility] No Information Oct-1 1-200 7 Rao OD Erickson. [address] , [address], [place], [facility], [place]. tel:[phone] [facility], [address] [place] [address] [address], [place], [place], [address], tel:[phone] [facility] No Information Oct-0 4-200 7 Rao OD Erickson. [address], [address], [place], [facility], [place]. tel:[phone] Referring Provider: Antony Hay, [address], [place], [facility]. tel:[phone] [facility], [address] [place] [address] [address], [place], [place], [address], tel:[phone] [facility] No Information Sep-2 8-200 7 Chase Hardy. [facility] [address], [address], [place], [facility], [place]. tel:[phone] Referring Provider: Erickson Rao OD A, [address], [place], [facility]. tel:[phone] [facility], [address] [place] [address] [address], [place], [place], [address], [place] tel:[phone] Nov [facility] No Information Sep-2 7-200 7 Chase Hardy. [address], [address], [place], [facility], [place]. tel:[phone] [facility], [address] [place] [address] [address], [place], [place], [address], [place] tel:[phone] [facility] No Information Sep-1 8-200 7 Chase Hardy. [address], [address], [place], [facility], [place]. tel:[phone] Referring Provider: Antony Hay, [address], [place], [address]. tel:[phone] Office/outpa tient Visit, [facility], [address] [place] [address] [address], [place], [place], [address], tel:[phone] [place] [address] No Information 200 7 Doisy Edward. [facility] [address], [place], [address], [place]. tel:[phone] Referring Provider: Erickson Rao OD A, [address] [place], [place] [address]ate [address], [place], [address]. tel:[phone] [facility], [address] [place] [address] [address], [place], [place], [address], tel:[phone] [facility] No Information 7 Rao OD Erickson. [address] [place] [address] , [address], [place], [address], [place]. tel:[phone] Family History Family Member Type Diagnosis Age At Onset No Information Payers Payer name Insurance type Covered alliance party ID Authoriza tion(s) No Information Social History [...] OS. Pt states she gets glasses at [facility]. 2 wk po yag PC (06/26/19) [...] Additional Infor ryan Impression/Plan Impression/Plan Related to Encgus nter for follow-up Impression/Plan Follow up - 1 yr complete exam Impression/Plan - PC F OS discussed along with signs/symptoms of progression explained and YAG PC for treatment. Pt aware treatment is not indicated at this time, but rec returning sooner if vision worsens Follow up - 6 months PCF check Impression/Plan - PC F discussed along with signs/symptoms of progression explained and YAG PC for treatment. Pt aware treatment is not indicated at this time, but rec returning sooner if vision worsens. Rec keeping regular exams scheduled with Dr. Guerrero. Return to the office in 6 months or sooner if vision worsens. Other secondary gladys ract, left eye - Surgery not indicated now. Related to Other secondary cataract, left eye Assessments Type Assessment Date No Information Patient Care Teams Name Effective Dates (start - stop) Status Members No Information
== END 2024-10-14 14:23 | DRG 482 ==
LOC: ANHED 12:26 → ANHSURGERY 12:55 → ANH3MEDSUR 10-11 06:10
PROVIDERS: Orthopaedic Surgery; Student in an Organized Health Care Education/Training Program; Admitting Provider General Practice; Emergency Provider Registered Nurse; PCP Family Medicine; Visit Provider Nurse Practitioner Adult Health
PROC: 0QS634Z Reposition Right Upper Femur with Internal Fixation Device, Percutaneous Approach (ICD-10-PCS; principal; 2024-10-10 15:00)
DX: S72.011A Unspecified intracapsular fracture of right femur, initial encounter for closed fracture (principal); W00.0XXA Fall on same level due to ice and snow, initial encounter; M16.11 Unilateral primary osteoarthritis, right hip; M81.0 Age-related osteoporosis without current pathological fracture; E78.5 Hyperlipidemia, unspecified; F41.9 Anxiety disorder, unspecified; Z85.51 Personal history of malignant neoplasm of bladder; Z90.49 Acquired absence of other specified parts of digestive tract
CPT/HCPCS: 36415; 72131; 73521; 73564; 73700; 80048; 80053; 85025; 86850; 86900; 86901; 87635; 93005; 96365; 96367; 96368; 96375; 97110; 97116; 97161; 97166; 97530; 97535; 99199; 99285; A9270; C1713; C1769; J0690; J1100; J2003; J2270; J2371; J2704; J3010; J3370; J7030; J7120